=== PATIENT | male | born 1955 | race African-American/Black ===

== ENCOUNTER 2016-12-10 13:07 | Emergency (ER) | payer OTHER ==
[2016-12-10 13:37] VITALS: BP 126/76; PULSE 70; TEMP 98.3; BMI 28.1
[2016-12-10] MEDS ORDERED: CYCLOBENZAPRINE HCL 10 MG TABLET (FP) PO ONE (14:43)
[2016-12-10] MEDS ORDERED: CYCLOBENZAPRINE HCL 10 MG TABLET (FP) ONE (14:44)
--- NOTE | 2016-12-10 14:47 | PDOC ---
History of Present Illness - General Chief Complaint: Pain Stated Complaint: LT HIP DISCOMFORT Time Seen by Provider: 12/10/16 14:26 History Source: Patient Exam Limitations: No Limitations - History of Present Illness Initial Comments: 12/10/16 14:47 Patient is here with complaints of left hip and low back pain. States was walking quickly and felt an acute onset of strain/pull to his left lower back/ into his gluteus and down his upper posterior thigh. States happened approximately 2 years ago same type of issue and was given some type of muscle relaxant which resolved his pain. Patient suffers from some chronic immobility status post CVA 2 years ago but is very active performing his own physical therapy at home, wears a leg brace, and walks with a cane. Patient denies fever , denies any nausea vomiting diarrhea or constipation, no bowel changes. No urinary problems. Denies numbness or tingling to leg that is different from his baseline 12/10/16 14:53 Occurred: reports: just prior to arrival Pain Location: reports: back, lower extremity Modifying Factors: improves with: None Loss of Consciousness: no loss of consciousness Associated Symptoms (Fall): denies symptoms Past History - Travel Traveled outside of the country in the last 30 days: No Close contact w/someone who was outside of country & ill: No - Past Medical History Allergies/Adverse Reactions: Allergies Allergy/AdvReac Type Severity Reaction Status Date / Time No Known Allergies Allergy Verified 12/10/16 13:34 Home Medications: Ambulatory Orders Cyclobenzaprine HCl [Flexeril -] 10 mg PO Q8H PRN #21 tablet 12/10/16 CVA: Yes (2009) HTN: Yes - Psycho/Social/Smoking Cessation Hx Anxiety: No Suicidal Ideation: No Smoking Status: No Smoking History: Never smoked Have you smoked in the past 12 months: No Number of Cigarettes Smoked Daily: 0 Information on smoking cessation initiated: No Hx Alcohol Use: No Drug/Substance Use Hx: No Substance Use Type: None Trauma Specific PMHX - Complaint Specific PMHX Back Injury: Yes Other History: left-sided deficits from CVA Review of Systems - Review of Systems Able to Perform ROS?: Yes Is the patient limited Tristanian proficient: Yes Constitutional: Yes: Symptoms Reported, See HPI. No: Malaise HEENTM: Yes: Symptoms Reported Musculoskeletal: Yes: Symptoms Reported, See HPI, Back Pain, Muscle Pain Integumentary: No: Symptoms Reported Neurological: Yes: Symptoms reported All Other Systems: Reviewed and Negative *Physical Exam - Vital Signs Last Vital Signs Temp Pulse Resp BP Pulse Ox 98.3 F 70 18 126/76 100 12/10/16 13:35 12/10/16 13:35 12/10/16 13:35 12/10/16 13:35 12/10/16 13:35 - Physical Exam General Appearance: Yes: Nourished, Appropriately Dressed, Apparent Distress HEENT: positive: JANIE, TMs Normal, Pharynx Normal Neck: positive: Tender, Supple Respiratory/Chest: positive: Lungs Clear, Normal Breath Sounds Cardiovascular: positive: Regular Rhythm, Regular Rate Gastrointestinal/Abdominal: positive: Soft Musculoskeletal: positive: Normal Inspection, Muscle Spasm (low back ) Extremity: positive: Normal Capillary Refill, Normal Range of Motion (for patient, status post CVA with some tenderness reproduced with forward flexion, and motion at waist. Tension and faint spasm palpated to the left side paravertebral lumbar spinous muscles). negative: Tender Integumentary: positive: Normal Color, Pale Neurologic: positive: clinical quality rn II-XII NML intact, Fully Oriented, Alert, Normal Mood/ Affect, Normal Response, Motor Strength 5/5 Progress Note - Progress Note Progress Note: Low back spasm, will treat with cyclobenzaprine and Tylenol *DC/Admit/Observation/Transfer Diagnosis at time of Disposition: Low back strain Qualifiers: Encounter type: initial encounter Qualified Code(s): S39.012A - Strain of muscle, fascia and tendon of lower back, initial encounter - Discharge Dispostion Disposition: HOME Condition at time of disposition: Stable Admit: No - Prescriptions Prescriptions: Cyclobenzaprine HCl [Flexeril -] 10 mg PO Q8H PRN #21 tablet PRN Reason: Muscle Spasms - Patient Instructions Printed Discharge Instructions: DI for Back Strain or Sprain Additional Instructions: Rest, no heavy lifting or exercise until pain is resolved Hot soaks to neck and low back as often as possible/hot showers or Jacuzzis No massage or therapy until spasm is gone Continue Tylenol 2 -325 mg tablets every 6 hours for the next 3 days then as needed for pain and swelling Cyclobenzaprine 1-10mg every 8 hours as needed for spasm If not significant improvement within 24 hours with medication and rest regime, followup with private physician for change in medications and /or therapy.
== END 2016-12-10 15:07 | disposition home or self-care (01) ==
LOC: JERFT 13:07
DX: S39.012A Strain of muscle, fascia and tendon of lower back, initial encounter (principal); I69.854 Hemiplegia and hemiparesis following other cerebrovascular disease affecting left non-dominant side; I10 Essential (primary) hypertension; X50.3XXA Overexertion from repetitive movements, initial encounter; Y93.01 Activity, walking, marching and hiking; Y92.89 Other specified places as the place of occurrence of the external cause
CPT/HCPCS: 99281-25

== ENCOUNTER 2017-08-15 10:02 | Emergency (ER) | payer OTHER ==
[2017-08-15 10:08] VITALS: BP 127/54; PULSE 70; TEMP 98.1; BMI 27.1
--- NOTE | 2017-08-15 11:56 | PDOC ---
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 Patient reports that he normally does not feel lower back pain or hip pain. He describes the hip pain presently as a pulling sensation. Patient denies any radiation of pain down the legs or buttocks. Patient has tingling of his left lower extremity daily is not worse. Patient has a brace to his left lower extremity that he is wearing. Patient reports that his ambulation is not worse than usual. Patient reports that in the past when he has had back pain is take a muscle relaxant with good relief. Patient took acetaminophen earlier today is unsure of milligrams he took. Patient denies any incontinency or saddle anesthesia. Occurred: reports: yesterday Severity: reports: moderate. denies: severe Pain Location: reports: back (for a few minutes this morning acrosss lower back ), lower extremity (left lateral hip area ) Method of Injury: Yes: other (twisted suddenly torso walking up a hill last nigt felt pull to left hip area ) Modifying Factors: improves with: None Loss of Consciousness: no loss of consciousness Associated Symptoms (Fall): denies symptoms, trouble walking (ambulates with cane, has brace left lower leg), other (ambulates wih cane, has brace left lower extremity ) Past History - Past Medical History Allergies/Adverse Reactions: Allergies Allergy/AdvReac Type Severity Reaction Status Date / Time No Known Allergies Allergy Verified 08/15/17 10:04 Home Medications: Ambulatory Orders Cyclobenzaprine HCl [Flexeril -] 10 mg PO Q8H PRN #21 tablet MDD 30 08/15/17 CVA: Yes (2009) HTN: Yes - Immunization History Immunization Up to Date: Yes - Suicide/Smoking/Psychosocial Hx Smoking Status: No Smoking History: Never smoked Have you smoked in the past 12 months: No Number of Cigarettes Smoked Daily: 0 Hx Alcohol Use: No Drug/Substance Use Hx: No Substance Use Type: None Trauma Specific PMHX - Complaint Specific PMHX Back Injury: Yes Review of Systems - Review of Systems Able to Perform ROS?: Yes Constitutional: No: Symptoms Reported HEENTM: No: Symptoms Reported Respiratory: No: Symptoms reported Cardiac (ROS): No: Symptoms Reported ABD/GI: No: Symptoms Reported : No: Symptoms Reported Musculoskeletal: Yes: Back Pain (lower back transient this morning for a few minutes ), Muscle Pain (left lateral slightly medial hip area ) Integumentary: No: Symptoms Reported Neurological: Yes: Pre-Existing Deficit (left leg status post stroke 2009 not worse since last night ) *Physical Exam - Vital Signs Last Vital Signs Temp Pulse Resp BP Pulse Ox 98.1 F 70 18 127/54 98 08/15/17 10:05 08/15/17 10:05 08/15/17 10:05 08/15/17 10:05 08/15/17 10:05 - Physical Exam General Appearance: Yes: Appropriately Dressed Respiratory/Chest: positive: Lungs Clear, Normal Breath Sounds. negative: Chest Tender, Respiratory Distress Cardiovascular: positive: Regular Rhythm, Regular Rate, S1, S2 Vascular Pulses: Doralis-Pedis (L): 4+ Musculoskeletal: positive: Normal Inspection, Decreased Range of Motion (left hip slight all directions ). negative: CVA Tenderness, CVA Tenderness (R), CVA Tenderness (L), Muscle Spasm, Vertebral Tenderness Extremity: positive: Normal Capillary Refill, Normal Inspection, Tender (left hip muscular ) Integumentary: positive: Normal Color Neurologic: positive: Alert, Normal Response, Respond to painful stimul (left leg ), Responsive, Sensory Deficit (left leg ( not worse than prior) ), Other ( negative SLR b/l ). negative: Motor Strength 5/5 (left leg motor strength 3/5) Deep Tendon Reflexes: Knee (L): 4+, Knee (R): 3+ Medical Decision Making - Medical Decision Making 08/15/17 12:11 Patient is a 61-year-old male with history of right-sided CVA 2010 with residual weakness of the left leg, hypertension, hyperlipidemia here today complaining of lower back pain that he felt earlier this morning and left hip pain that he felt last night when he was walking up a hill and turned his torso slightly. Patient reports that he normally does not feel lower back pain or hip pain. He describes the hip pain presently as a pulling sensation. Patient denies any radiation of pain down the legs or buttocks. Patient has tingling of his left lower extremity daily is not worse. Patient has a brace to his left lower extremity that he is wearing. Patient reports that his ambulation is not worse than usual. Patient reports that in the past when he has had back pain is take a muscle relaxant with good relief. Patient took acetaminophen earlier today is unsure of milligrams he took. Patient denies any incontinency or saddle anesthesia. lower back strain left hip strain PLAN: flexeril 10 mg every 8 hrs prn muscle spasm X 21 tabs follow up with orthopedist for further eval *DC/Admit/Observation/Transfer Diagnosis at time of Disposition: Low back strain Qualifiers: Encounter type: initial encounter Qualified Code(s): S39.012A - Strain of muscle, fascia and tendon of lower back, initial encounter Strain of left hip Qualifiers: Encounter type: initial encounter Qualified Code(s): S76.012A - Strain of muscle, fascia and tendon of left hip, initial encounter - Discharge Dispostion Disposition: HOME Condition at time of disposition: Stable - Referrals Referrals: Liza Ariza MD [Primary Care Provider] - Babatunde Villalobos MD [Staff Physician] - - Patient Instructions Additional Instructions: Follow-up with orthopedist for further evaluation as soon as possible return to emergency room if symptoms worsen or new symptoms develop Take acetaminophen as needed as directed by clinical engineering director for pain Avoid strenuous activities until cleared by orthopedist to resume as usual Patient voiced understanding of discharge instructions and all questions were answered - Post Discharge Activity
== END 2017-08-15 12:59 | disposition home or self-care (01) ==
LOC: JERFT 10:02
DX: S39.012A Strain of muscle, fascia and tendon of lower back, initial encounter (principal); X58.XXXA Exposure to other specified factors, initial encounter; Y93.89 Activity, other specified; Y92.9 Unspecified place or not applicable; I69.398 Other sequelae of cerebral infarction; S76.012A Strain of muscle, fascia and tendon of left hip, initial encounter
CPT/HCPCS: 99281-25

== ENCOUNTER 2017-09-19 10:28 | Emergency (ER) | payer OTHER ==
[2017-09-19 10:40] VITALS: BP 124/75; PULSE 75; TEMP 97.3; BMI 27.1
--- NOTE | 2017-09-19 11:34 | PDOC ---
History of Present Illness - General Chief Complaint: Pain Stated Complaint: PAIN (LT LEG) Time Seen by Provider: 09/19/17 11:27 History Source: Patient Exam Limitations: No Limitations - History of Present Illness Initial Comments: 09/19/17 11:32 My chief complaint: Lower back pain radiating down left leg 12/10/16 14:53 History of present illness:Patient is a 61 y/o male with h/o rt. sided CVA and HTN here today with complaints of left lower back pain radiates down left leg to calf . States was walking quickly and felt an acute onset of strain/pull to his left lower back/into his gluteus and down his upper posterior thigh in . Pt. was seen here on 08/15/2017 given a prescription for Flexeril however patient reports that this did not help to relieve the pain did did in the past 2 years ago when he had similar symptoms. Patient suffers from some chronic immobility status post CVA 2 years ago affecting his left side, wears a lower leg brace and uses a cane. He is very active performing his own physical therapy at home. He denies any worsening weakness of left leg or foot. Patient reports having a tingling sensation in his left leg recently. No bowel changes or urinary problems or incontinency or saddle anestheis. He has an appointment with his orthopedist tomorrow in regards to his left shoulder Dr. Gomes. He has only taken Tylenol for arthritis for relief of pain last took yesterday with minimal relief. 09/19/17 12:02 09/19/17 12:03 09/19/17 12:10 Occurred: reports: other (intermittent since 08/04) Severity: reports: moderate Pain Location: reports: back (left lower radiates down left leg laterally to left calf ) Method of Injury: Yes: unknown Modifying Factors: improves with: None Loss of Consciousness: no loss of consciousness Past History - Past Medical History Allergies/Adverse Reactions: Allergies Allergy/AdvReac Type Severity Reaction Status Date / Time No Known Allergies Allergy Verified 09/19/17 10:40 Home Medications: Ambulatory Orders Naproxen [Naprosyn -] 500 mg PO BID PRN #14 tablet MDD 2 09/19/17 CVA: Yes (2009) COPD: No HTN: Yes - Immunization History Immunization Up to Date: Yes - Suicide/Smoking/Psychosocial Hx Smoking Status: No Smoking History: Never smoked Have you smoked in the past 12 months: No Number of Cigarettes Smoked Daily: 0 Hx Alcohol Use: No Drug/Substance Use Hx: No Substance Use Type: None Trauma Specific PMHX - Complaint Specific PMHX Back Injury: Yes Review of Systems - Review of Systems Able to Perform ROS?: Yes Constitutional: No: Symptoms Reported HEENTM: No: Symptoms Reported Respiratory: No: Symptoms reported Cardiac (ROS): No: Symptoms Reported ABD/GI: No: Symptoms Reported : No: Symptoms Reported Musculoskeletal: Yes: Back Pain (left lower radiates to left buttock down left leg to calf ) Neurological: Yes: Tingling (left leg ) *Physical Exam - Vital Signs Last Vital Signs Temp Pulse Resp BP Pulse Ox 97.3 F L 75 18 124/75 98 09/19/17 10:37 09/19/17 10:37 09/19/17 10:37 09/19/17 10:37 09/19/17 10:37 - Physical Exam General Appearance: Yes: Appropriately Dressed Respiratory/Chest: positive: Lungs Clear, Normal Breath Sounds. negative: Chest Tender, Respiratory Distress Cardiovascular: positive: Regular Rhythm, Regular Rate, S1, S2 Vascular Pulses: Doralis-Pedis (L): 4+ Musculoskeletal: positive: Normal Inspection, Decreased Range of Motion (slight at waist with flexion ). negative: CVA Tenderness, CVA Tenderness (R), CVA Tenderness (L), Muscle Spasm, Vertebral Tenderness Extremity: positive: Normal Capillary Refill, Normal Inspection, Normal Range of Motion. negative: Tender, Swelling Integumentary: positive: Normal Color Neurologic: positive: Alert, Normal Response, Respond to painful stimul (left leg ), Responsive, Other (motor left lower 4/4, rt. 5/5 ). negative: Motor Strength 5/5, Numbness, Sensory Deficit (left leg) Deep Tendon Reflexes: Knee (L): 3+, Knee (R): 3+ Medical Decision Making - Medical Decision Making 09/19/17 12:08 Patient is a 61 y/o male with h/o rt. sided CVA and HTN here today with complaints of left lower back pain radiates down left leg to calf . States was walking quickly and felt an acute onset of strain/pull to his left lower back/ into his gluteus and down his upper posterior thigh in 08/04. Pt. was seen here on 08/15/2017 given a prescription for Flexeril however patient reports that this did not help to relieve the pain did did in the past 2 years ago when he had similar symptoms. Patient suffers from some chronic immobility status post CVA 2 years ago affecting his left side, wears a lower leg brace and uses a cane. He is very active performing his own physical therapy at home. He denies any worsening weakness of left leg or foot. Patient reports having a tingling sensation in his left leg recently. No bowel changes or urinary problems or incontinency or saddle anesthesis. He has an appointment with his orthopedist tomorrow in regards to his left shoulder Dr. Gomes. He has only taken Tylenol for arthritis for relief of pain last took yesterday with minimal relief. left sided lower back pain with radiculopathy down left leg with paresthesia PLAN: toradol 30 mg IM now xray left hip no gross abnormality noted xray lumbar/sacral spine DJD, no gross abnormality noted 09/19/17 12:11 09/19/17 12:11 09/19/17 14:01 Naprosyn 500 mg bid prn pain # 14 tabs follow up with ortho tomorrow Dr. Gomes pt.'s orthopedist pt feeling better 09/19/17 19:51 *DC/Admit/Observation/Transfer Diagnosis at time of Disposition: Lumbar back pain with radiculopathy affecting left lower extremity - Discharge Dispostion Disposition: HOME Condition at time of disposition: Stable - Prescriptions Prescriptions: Naproxen [Naprosyn -] 500 mg PO BID PRN #14 tablet MDD 2 PRN Reason: Pain - Referrals Referrals: Liza Ariza MD [Primary Care Provider] - - Patient Instructions Additional Instructions: Follow-up with your orthopedist tomorrow for further evaluation Return to emergency room for worsening lower back pain radiating down your leg or worsening tingling of leg or numbness of leg or private area or any os of control of bladder or bowel movement Patient voiced understanding of discharge instructions and all questions were answered And thank you for choosing [facility] emergency room for your medical needs today
[2017-09-19] MEDS ORDERED: KETOROLAC TROMETHAMINE 60 MG/2 ML VIAL IM ONE (12:02)
[2017-09-19] MEDS ORDERED: KETOROLAC TROMETHAMINE 30 MG/1 ML VIAL ONE (12:07)
== END 2017-09-19 14:09 | disposition home or self-care (01) ==
LOC: JERFT 10:28
PROC: 3E0233Z Introduction of Anti-inflammatory into Muscle, Percutaneous Approach (ICD-10-PCS; principal; 2017-09-19)
DX: M54.16 Radiculopathy, lumbar region (principal); Z86.73 Personal history of transient ischemic attack (TIA), and cerebral infarction without residual deficits; I10 Essential (primary) hypertension
CPT/HCPCS: 72100-TC; 73502-TC-LT; 99281-25

== ENCOUNTER 2017-10-12 13:32 | Inpatient (IN) | payer OTHER ==
[2017-10-12 13:52] VITALS: BMI 27.7
--- NOTE | 2017-10-12 14:38 | PDOC ---
History of Present Illness - General Chief Complaint: Urinary Problem Stated Complaint: URINARY PROBLEM Time Seen by Provider: 10/12/17 14:16 History Source: Patient Exam Limitations: No Limitations - History of Present Illness Initial Comments: 10/12/17 14:38 61M with pmh of htn and CVA in 2009 presents burning on urination and subjective fever. Seen by dr. Arrieta on the for a cystoscopy, was told his bladder was inflammed and given a prescription for levofloxacin but didn't get a chance to take it yet. Denies abdominal pain or hematuria. No UTI history. Is not sure why he has a urologist or why a cytoscopy was performed in the first place. Not on aspirin. Past History - Past Medical History Allergies/Adverse Reactions: Allergies Allergy/AdvReac Type Severity Reaction Status Date / Time No Known Allergies Allergy Verified 10/12/17 13:46 Home Medications: Ambulatory Orders Fenofibrate Nanocrystallized [Fenofibrate] 145 mg PO DAILY 10/12/17 Losartan Potassium [Cozaar] 100 mg PO DAILY 10/12/17 Metoprolol Tartrate [Lopressor] 50 mg PO DAILY 10/12/17 Tamsulosin HCl [Flomax] 0.4 mg PO DAILY 10/12/17 CVA: Yes (2009) COPD: No HTN: Yes - Immunization History Immunization Up to Date: Yes - Suicide/Smoking/Psychosocial Hx Smoking Status: No Smoking History: Never smoked Have you smoked in the past 12 months: No Number of Cigarettes Smoked Daily: 0 Information on smoking cessation initiated: No Hx Alcohol Use: No Drug/Substance Use Hx: No Substance Use Type: None Review of Systems - Review of Systems Able to Perform ROS?: Yes Is the patient limited Botswanan proficient: No Constitutional: Yes: Symptoms Reported, Diaphoresis, Fever, Night Sweats, Weakness HEENTM: No: Symptoms Reported Respiratory: No: Symptoms reported Cardiac (ROS): No: Symptoms Reported ABD/GI: No: Symptoms Reported : Yes: Burning, Dysuria, Frequency. No: Flank Pain All Other Systems: Reviewed and Negative *Physical Exam - Vital Signs Last Vital Signs Temp Pulse Resp BP Pulse Ox 100.1 F H 110 H 15 111/70 98 10/12/17 13:47 10/12/17 13:47 10/12/17 13:47 10/12/17 13:47 10/12/17 13:47 - Physical Exam General Appearance: Yes: Nourished, Appropriately Dressed, Mild Distress HEENT: positive: EOMI, JANIE, Normal ENT Inspection Neck: negative: Tender Respiratory/Chest: positive: Lungs Clear, Normal Breath Sounds, Respiratory Distress. negative: Chest Tender Cardiovascular: positive: Regular Rhythm, Regular Rate, S1, S2 Gastrointestinal/Abdominal: positive: Normal Bowel Sounds, Flat, Soft ED Treatment Course - LABORATORY CBC & Chemistry Diagram: 10/12/17 15:00 10/12/17 15:00 Medical Decision Making - Medical Decision Making 10/12/17 20:03 61M with pmh of htn and CVA in 2009 presents burning on urination and subjective fever. Patient urine positive for blood and nitrites Started on Zosyn and fluids. 'Orderd Ct abdomen to evaluate for mass/foreign object in the bldder post cystectomy. Acetaminophen for pyuresis. Spoke to Dr. Arnett supervisor product inspection for [facility], agreed with plan to admit patient. Patient admitted to Med Surg. PAtient signed out to Dr. Garcia. 10/12/17 20:05 *DC/Admit/Observation/Transfer Diagnosis at time of Disposition: UTI (urinary tract infection), Sepsis - Referrals Referrals: Liza Ariza MD [Primary Care Provider] - - Patient Instructions - Post Discharge Activity
--- NOTE | 2017-10-12 15:00 | PDOC ---
Attending Attestation - ED Attending Attestation I have performed the following: I agree w/resident's findings & plan - HPI HPI: 10/12/17 17:53 The patient is a year 61 old male with a significant PMH of hypertension, CVA in 2009 and s/p cystoscopy who presents to the emergency department with burning urination and subjective fever. Dr. Arrieta performed the cystoscopy and patient was sent home on levofloxacin but the patient reports he has not taken the medication. The patient denies chest pain, headache, and shortness of breath. Denies nausea, vomit, diarrhea and constipation. Denies abdominal pain and hematuria. Allergies: NKA Past surgical history: None reported. Social history: No reported cigarette, alcohol, or drug abuse. PCP: Dr. Ariza - Physicial Exam PE: 10/12/17 17:59 Vitals: Triage Vital signs reviewed General Appearance: (+) Diaphoresis. Well nourished well developed, Head: Atraumatic, normocephalic Eyes: Pupils equal reactive round, extraocular movement intact Neck: Supple;No Nuchal rigidity Chest Wall: Nontender Cardiac: Regular rate and rhythm, no murmurs, no rubs, no gallops, Lungs: Clear to auscultation bilateral, good air movement bilaterally, Abdomen: Soft, nondistended, normal bowel sounds, nontender to palpation Extremities: (+) Rigoring. Full range of motion to all extremities, no cyanosis , clubbing, or edema Skin: Warm and dry, no rashes or lesions, no petechiae <Ericka Kidd - Last Filed: 10/12/17 17:53> - Medical Decision Making 10/12/17 20:15 History and examination consistent with urosepsis secondary to recent cystoscopy procedure. Given elevation of white blood cell count a noncontrast CT of the patient's abdomen was ordered. to f/u results Patient treated with 2 L normal saline IV Zosyn and IV Tylenol We'll admit to medicine for further management. <Slick Harrell - Last Filed: 10/12/17 20:15>
[2017-10-12 15:26] LABS: MCH 33.3 pg (25.7-33.7); MCHC 33.7 g/dl (32.0-35.9); MEAN CELL VOLUME 98.7 fl (80-96); RDW 13.9 % (11.9-15.9)
[2017-10-12] MEDS ORDERED: ACETAMINOPHEN 325 MG TABLET (FP) ONE (15:29)
[2017-10-12] MEDS ORDERED: ACETAMINOPHEN 500 MG TABLET (FP) PO ONE (15:29)
[2017-10-12 15:31] LABS: INR 1.31 (0.82-1.09); PROTHROMBIN TIME (PATIENT) 14.8 SEC (9.98-11.88)
[2017-10-12 15:34] LABS: ACTIVATED PTT 31.8 SECONDS (26.9-34.4)
[2017-10-12 15:41] LABS: URINE APPEARANCE SLCLOUDY; URINE BILIRUBIN NEGATIVE (NEGATIVE); URINE BLOOD 3+ (NEGATIVE); URINE COLOR YELLOW; URINE GLUCOSE (UA) 2+ (NEGATIVE); URINE KETONE NEGATIVE (NEGATIVE); URINE NITRITE POSITIVE (NEGATIVE); URINE UROBILINOGEN NEGATIVE mg/dL (0.2-1.0)
[2017-10-12 15:43] LABS: ALBUMIN 3.8 g/dl (3.4-5.0); ANION GAP 6 (8-16); CALCIUM 9.2 mg/dL (8.5-10.1); CO2 26 mmol/L (21-32); CREATININE 1.4 mg/dL (0.7-1.3); GLUCOSE,RANDOM 133 mg/dL (74-106); SGPT/ALT 33 U/L (12-78)
[2017-10-12 15:49] LABS: ALK PHOS 69 U/L (45-117); BILIRUBIN,TOTAL 1.2 mg/dL (0.2-1.0); SGOT/AST 13 U/L (15-37); TOT PROT 7.8 g/dl (6.4-8.2)
[2017-10-12 16:02] LABS: URINE PROTEIN 1+ (NEGATIVE)
[2017-10-12 16:04] LABS: URINE RBC 492 /hpf (0-3); URINE WBC 104 /hpf (3-5); YEAST FEW
[2017-10-12] MEDS ORDERED: PIPERACILLIN/TAZOB 4.5 GM/100 ML PRE-DOCKED IVPB ONE (16:42)
[2017-10-12] MEDS ORDERED: PIPERACILLIN/TAZOB 4.5 GM 4.5 GM/100 ML BAG IVPB ONE (16:55)
[2017-10-12 16:58] LABS: MEAN PLT VOLUME 10.6 fl (7.5-11.1); PLATELET COUNT 95 K/MM3 (134-434); PLATELET ESTIMATE SLT DECREASE
[2017-10-12 17:04] LABS: MYELOCYTE 1 % (0-2); REACTIVE LYMPHOCYTES 3 % (0-80); TOTAL CELLS COUNTED 100
[2017-10-12] MEDS ORDERED: SODIUM CHLORIDE 1,000 ML IV STA (17:10)
--- NOTE | 2017-10-12 19:33 | PDOC ---
*Physical Exam - Vital Signs Patient's care signed out to me by Dr. Velasquez. 61 YOM with urosepsis, plan is admission to [facility] now awaiting CT abdomen results. Spoke with Dr. Aguiar already with Urology. Will [employer] [facility] when official CT results are in. Last Vital Signs Temp Pulse Resp BP Pulse Ox 101.6 F H 100 H 15 101/64 95 10/12/17 17:47 10/12/17 17:47 10/12/17 13:47 10/12/17 17:47 10/12/17 17:47 ED Treatment Course - LABORATORY CBC & Chemistry Diagram: 10/13/17 07:00 10/13/17 07:00 - ADDITIONAL ORDERS Additional order review: Laboratory Results 10/12/17 10/12/17 10/12/17 17:20 15:20 15:00 PT with INR INR PTT (Actin FS) Sodium 134 L Potassium 4.1 Chloride 102 Carbon Dioxide 26 Anion Gap 6 L BUN 12 Creatinine 1.4 H Creat Clearance w eGFR 51.18 Random Glucose 133 H Lactic Acid 1.5 Calcium 9.2 Total Bilirubin 1.2 H D AST 13 L ALT 33 Alkaline Phosphatase 69 Total Protein 7.8 Albumin 3.8 Urine Color Yellow Urine Appearance Slcloudy Urine pH 7.0 Ur Specific [place] 1.018 Urine Protein 1+ H Urine Glucose (UA) 2+ H Urine Ketones Negative Urine Blood 3+ H Urine Nitrite Positive Urine Bilirubin Negative Urine Urobilinogen Negative Urine WBC (Auto) 104 Urine RBC (Auto) 492 Ur Epithelial Cells Rare Urine Yeast Few 10/12/17 15:00 PT with INR 14.80 H INR 1.31 H PTT (Actin FS) 31.8 Sodium Potassium Chloride Carbon Dioxide Anion Gap BUN Creatinine Creat Clearance w eGFR Random Glucose Lactic Acid Calcium Total Bilirubin AST ALT Alkaline Phosphatase Total Protein Albumin Urine Color Urine Appearance Urine pH Ur Specific [place] Urine Protein Urine Glucose (UA) Urine Ketones Urine Blood Urine Nitrite Urine Bilirubin Urine Urobilinogen Urine WBC (Auto) Urine RBC (Auto) Ur Epithelial Cells Urine Yeast 10/12/17 15:00 RBC 4.43 MCV 98.7 H MCHC 33.7 RDW 13.9 MPV 10.6 Neutrophils % No Result Required. Lymphocytes % No Result Required. - Medications Given in the ED: ED Medications Discontinued Medications Generic Name Dose Route Start Last Admin Trade Name Freq PRN Reason Stop Dose Admin Acetaminophen 1,000 mg 10/12/17 15:29 10/12/17 15:25 Tylenol - PO 10/12/17 15:30 1,000 mg ONCE ONE Administration Sodium Chloride 1,000 mls @ 1,000 mls/hr 10/12/17 17:10 10/12/17 17:10 Normal Saline - IV 10/12/17 18:09 1,000 mls/hr ASDIR STA Administration Piperacillin Sod/Tazobactam Sod 4.5 gm 10/12/17 16:42 10/12/17 17:10 Zosyn 4.5gm Ivpb (Pre-Docked) IVPB 10/12/17 16:43 4.5 gm ONCE ONE Administration Medical Decision Making - Medical Decision Making 10/12/17 21:31 Spoke with admitting team who gives the go-ahead to admit to IP Med/Surg. Order placed for admission. Still awaiting final result of CT from Imaging Business [employer]ing Manager. Patient transported to IP bed without issue. *DC/Admit/Observation/Transfer Diagnosis at time of Disposition: UTI (urinary tract infection) Qualifiers: Urinary tract infection type: acute cystitis Hematuria presence: with hematuria Qualified Code(s): N30.01 - Acute cystitis with hematuria Sepsis Qualifiers: Sepsis type: sepsis due to unspecified organism Qualified Code(s): A41.9 - Sepsis, unspecified organism - Discharge Dispostion Condition at time of disposition: Guarded Admit: Yes - Referrals - Patient Instructions - Post Discharge Activity
[2017-10-12 20:00] LABS: URINE LEUK ESTERASE 1+ (NEGATIVE)
--- NOTE | 2017-10-12 21:27 | HP ---
CHIEF COMPLAINT: fevers HISTORY OF PRESENT ILLNESS: 61 year old male with a past medical history of hypertension and CVA in 2009 presented to the ED due to a 4 day history of fevers and burning on urination. Patient states that his PCP referred him to get a cystoscopy. Patient does not recall the reason why the PCP sent him for a cystoscopy. Patient states that he had the cystoscopy done on Saturday with Dr. Arrieta, who later reported to the patient that he had "inflammation of his bladder". After the procedure, patient reports being given a prescription for Levofloxacin. 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 He states that the fevers started on Saturday evening. He took advil but it did not help him. Patient states that he also had burning on urination and frequency. He states that in the ED, he had an episode of hematuria and when he was given IV fluids the hematuria had stopped. Patient states that he has some back pain. Denies chest pain, shortness of breath, nausea, vomiting. ER course was notable for: (1) tachycardia (2) fever (3) leukocytosis (4) + nitrites and WBCs on UA Recent Travel: None PAST MEDICAL HISTORY: Hypertension CVA 2010 PAST SURGICAL HISTORY: None Social History: Smoking: Former, unclear how long Alcohol: none Drugs: none Family History: Mother with diabetes and CVA Father has unclear history Allergies No Known Allergies Allergy (Verified 10/12/17 13:46) HOME MEDICATIONS: Home Medications Medication Instructions Recorded Fenofibrate Nanocrystallized 145 mg PO DAILY 10/12/17 [Fenofibrate] Losartan Potassium [Cozaar] 100 mg PO DAILY 10/12/17 Metoprolol Tartrate [Lopressor] 50 mg PO DAILY 10/12/17 Tamsulosin HCl [Flomax] 0.4 mg PO DAILY 10/12/17 REVIEW OF SYSTEMS CONSTITUTIONAL: fever, chills Absent: diaphoresis, generalized weakness, malaise, loss of appetite, weight change HEENT: Absent: rhinorrhea, nasal congestion, throat pain, throat swelling, difficulty swallowing, mouth swelling, ear pain, eye pain, visual changes CARDIOVASCULAR: Absent: chest pain, syncope, palpitations, irregular heart rate, lightheadedness , peripheral edema RESPIRATORY: Absent: cough, shortness of breath, dyspnea with exertion, orthopnea, wheezing, stridor, hemoptysis GASTROINTESTINAL: Absent: abdominal pain, abdominal distension, nausea, vomiting, diarrhea, constipation, melena, hematochezia GENITOURINARY: dysuria, frequency, urgency Absent: hesitancy, hematuria, flank pain, genital pain MUSCULOSKELETAL: Absent: myalgia, arthralgia, joint swelling, back pain, neck pain SKIN: Absent: rash, itching, pallor HEMATOLOGIC/IMMUNOLOGIC: Absent: easy bleeding, easy bruising, lymphadenopathy, frequent infections ENDOCRINE: Absent: unexplained weight gain, unexplained weight loss, heat intolerance, cold intolerance NEUROLOGIC: Absent: headache, focal weakness or paresthesias, dizziness, unsteady gait, seizure, mental status changes, bladder or bowel incontinence PSYCHIATRIC: Absent: anxiety, depression, suicidal or homicidal ideation, hallucinations. PHYSICAL EXAMINATION Vital Signs - 24 hr 10/12/17 10/12/17 10/12/17 13:47 17:47 20:03 Temperature 100.1 F H 101.6 F H 98.4 F Pulse Rate 110 H Pulse Rate [ 100 H Apical] Respiratory 15 Rate Blood Pressure 111/70 Blood Pressure 101/64 [Left Arm] O2 Sat by Pulse 98 95 Oximetry (%) GENERAL: Awake, alert, and fully oriented, in no acute distress. HEAD: Normal with no signs of trauma. EYES: Pupils equal, round and reactive to light, extraocular movements intact, sclera anicteric, conjunctiva clear. No lid lag. EARS, NOSE, THROAT: Ears normal, nares patent, oropharynx clear without exudates. Moist mucous membranes. NECK: Normal range of motion, supple without lymphadenopathy, JVD, or masses. LUNGS: Breath sounds equal, clear to auscultation bilaterally. No wheezes, and no crackles. No accessory muscle use. HEART: regular rate and rhythm, normal S1 and S2 without murmur, rub or gallop. ABDOMEN: Soft, nontender, not distended, normoactive bowel sounds, no guarding, no rebound, no masses. No hepatomegaly or splenomegaly. MUSCULOSKELETAL: Normal range of motion at all joints. No bony deformities or tenderness. No CVA tenderness. UPPER EXTREMITIES: 2+ pulses, warm, well-perfused. No cyanosis. No clubbing. No peripheral edema. LOWER EXTREMITIES: 2+ pulses, warm, well-perfused. No calf tenderness. No peripheral edema. NEUROLOGICAL: Cranial nerves II-XII intact. Normal speech. Normal gait. PSYCHIATRIC: Cooperative. Good eye contact. Appropriate mood and affect. SKIN: Warm, dry, normal turgor, no rashes or lesions noted, normal capillary refill. Laboratory Results - last 24 hr 10/12/17 10/12/17 10/12/17 15:00 15:00 15:00 WBC 20.0 H D RBC 4.43 Hgb 14.7 Hct 43.7 MCV 98.7 H MCH 33.3 MCHC 33.7 RDW 13.9 Plt Count 95 L MPV 10.6 Total Counted 100 Neutrophils % No Result Required. Neutrophils % (Manual) 74.0 Band Neutrophils % 6.0 Lymphocytes % No Result Required. Lymphocytes % (Manual) 7.0 L Monocytes % (Manual) 8 Basophils % (Manual) 1.0 Myelocytes % (Man) 1 Differential Comment Man diff performed Platelet Estimate Slt decrease Platelet Comment PT with INR 14.80 H INR 1.31 H PTT (Actin FS) 31.8 Sodium 134 L Potassium 4.1 Chloride 102 Carbon Dioxide 26 Anion Gap 6 L BUN 12 Creatinine 1.4 H Creat Clearance w eGFR 51.18 Random Glucose 133 H Lactic Acid Calcium 9.2 Total Bilirubin 1.2 H D AST 13 L ALT 33 Alkaline Phosphatase 69 Total Protein 7.8 Albumin 3.8 Urine Color Urine Appearance Urine pH Ur Specific [place] Urine Protein Urine Glucose (UA) Urine Ketones Urine Blood Urine Nitrite Urine Bilirubin Urine Urobilinogen Ur Leukocyte Esterase Urine WBC (Auto) Urine RBC (Auto) Ur Epithelial Cells Urine Yeast 10/12/17 10/12/17 15:20 17:20 WBC RBC Hgb Hct MCV MCH MCHC RDW Plt Count MPV Total Counted Neutrophils % Neutrophils % (Manual) Band Neutrophils % Lymphocytes % Lymphocytes % (Manual) Monocytes % (Manual) Basophils % (Manual) Myelocytes % (Man) Differential Comment Platelet Estimate Platelet Comment PT with INR INR PTT (Actin FS) Sodium Potassium Chloride Carbon Dioxide Anion Gap BUN Creatinine Creat Clearance w eGFR Random Glucose Lactic Acid 1.5 Calcium Total Bilirubin AST ALT Alkaline Phosphatase Total Protein Albumin Urine Color Yellow Urine Appearance Slcloudy Urine pH 7.0 Ur Specific [place] 1.018 Urine Protein 1+ H Urine Glucose (UA) 2+ H Urine Ketones Negative Urine Blood 3+ H Urine Nitrite Positive Urine Bilirubin Negative Urine Urobilinogen Negative Ur Leukocyte Esterase 1+ H Urine WBC (Auto) 104 Urine RBC (Auto) 492 Ur Epithelial Cells Rare Urine Yeast Few ASSESSMENT/PLAN: 61 year old male with a past medical history of HTN and CVA is admitted to the hospital for treatment of sepsis secondary to UTI. #Sepsis 2/2 UTI: possibly 2/2 procedure patient underwent Saturday -given zosyn in the ED -will start ceftriaxone 2gm daily -obtain lactate level -CT abdomen pelvis official read not back - preliminarily the kidneys appear normal without hydronephrosis or evidence of pyelonephritis. Significant bladder wall thickening is noted. -ordered a chest xray to rule out pulmonary cause of sepsis -consult Dr. Arrieta (urologist) #MARY: patient's creatinine is 1.4 today -order urine electrolytes -order urine creatinine -order urine osmolarity -recheck BMP in AM -avoid nephrotoxic medications #Hypertension: chronic issue, controlled -restart home metoprolol 50mg PO BID -restart home losartan 50mg PO BID #Hyperlipidemia: unclear hx from patient -Continue home fenofibrate #Benign Prostatic Hyperplasia: Unclear history from patient on whether he actually has BPH, but is taking tamsulosin at home. -Continue home flomax -get clear history from urology -appreciate urology recommendations #FEN: -Hydration with normal saline @ 75cc/hr -check BMP in AM and replete eletrolytes as necessary -low-sodium diet ordered #Prophylaxis -Heparin 5000 subq TID #Disposition -Admit patient to med-surg -full code Visit type - Emergency Visit Emergency Visit: Yes Care time: The patient presented to the Emergency Department on the above date and was hospitalized for further evaluation of their emergent condition. - New Patient This patient is new to me today: Yes Date on this admission: 10/12/17 - Critical Care Critical Care patient: No
--- NOTE | 2017-10-12 21:35 | PN ---
Teaching Attending Note Name of Resident: Ricky Shin ATTENDING PHYSICIAN STATEMENT I saw and evaluated the patient. Chart, data, and imaging reviewed I reviewed the resident's note and discussed the case with the resident. I agree with the resident's findings and plan as documented. SUBJECTIVE: 61M with pmh of htn and CVA in 2009 c/o fever, chills, and burning with urination for for the last 2 days. Underwent cystoscopy for uncertain reason on 09/[address] Hayde Johnston, was told his bladder was inflammed and given a prescription for levofloxacin but didn't get a chance to take it yet. Pt endorses a vague history of renal stones. No Hx of UTIs. Denied any straining with urination. C/o back pain. OBJECTIVE: Last Vital Signs Temp Pulse Resp BP Pulse Ox 98.4 F 100 H 15 101/64 95 10/12/17 20:03 10/12/17 17:47 10/12/17 13:47 10/12/17 17:47 10/12/17 17:47 General- NAD, aaox3 HEENT at, nc, moist oral mucosa Neck -supple CV- s1+s2+ RRR Chest CTA b/l No CVA tenderness Skin- no rashes appreciated Abnormal Lab Results 10/12/17 10/12/17 10/12/17 15:00 15:00 15:00 WBC 20.0 H D MCV 98.7 H Plt Count 95 L Lymphocytes % (Manual) 7.0 L PT with INR 14.80 H INR 1.31 H Sodium 134 L Anion Gap 6 L Creatinine 1.4 H Random Glucose 133 H Total Bilirubin 1.2 H D AST 13 L Urine Protein Urine Glucose (UA) Urine Blood Ur Leukocyte Esterase 10/12/17 15:20 WBC MCV Plt Count Lymphocytes % (Manual) PT with INR INR Sodium Anion Gap Creatinine Random Glucose Total Bilirubin AST Urine Protein 1+ H Urine Glucose (UA) 2+ H Urine Blood 3+ H Ur Leukocyte Esterase 1+ H CT of abdomen/pelvis C- report pending ASSESSMENT AND PLAN: #Sepsis 2/2 to UTI s/p recent cystoscopy. Tachycardia, leukocyosis, pyuria present on UA. Hemodynamically stable. No evidence of pyelonephritis on physical exam as there is no CVA tenderness. S/p one dose of pip/tazo in ER with subjective improvement in symptoms. -admit to med/surg -blood cx x2 -urine cx -lactate -trend CBC -flu swab -EKG -CXR -f/u abdomen/pelvis CT report -ceftriaxone 2g IV q24hrs -urology f/u in am #MARY vs CKD -urine lytes -serum osm -urine osm -f/u abd/pelvis CT -avoid nephrotoxic meds -I/Os -daily weights -restart home meds for chronic medical problems -heparin for DVT ppx -2g Na diet
[2017-10-12] MEDS ORDERED: PATIENT'S OWN MEDICATION (NON-FORMULARY) (Fenofibrate Nanocrystallized [Fenofibrate] 145 M PO SCH (21:45)
[2017-10-12] MEDS ORDERED: PATIENT'S OWN MEDICATION (NON-FORMULARY) (Losartan Potassium [Cozaar] 100 MG) PO SCH (21:45)
[2017-10-12] MEDS: SODIUM CHLORIDE 1,000 ML IV SCH (22:30)
[2017-10-12] MEDS ORDERED: METOPROLOL TARTRATE 50 MG TABLET (FP) ONE (23:22)
[2017-10-12] MEDS ORDERED: HEPARIN NA (PORCINE) 5,000 UNITS/ML 1ML VIAL ONE (23:23)
[2017-10-12] MEDS ORDERED: LOSARTAN POTASSIUM 25 MG TABLET ONE (23:23)
[2017-10-12] MEDS ORDERED: TAMSULOSIN HCL 0.4 MG CAP.ER.24H (FP) ONE (23:23)
[2017-10-12] MEDS ORDERED: CEFTRIAXONE 2 GM/100 ML BAG IVPB ONE (23:24)
[2017-10-12 23:33] LABS: URINE CREATININE 60.1 mg/dL (20-370)
[2017-10-12] MEDS: TAMSULOSIN HCL 0.4 MG CAP.ER.24H (FP) PO SCH (23:40)
[2017-10-12] MEDS: LOSARTAN POTASSIUM 50 MG TABLET (FP) PO SCH (23:40)
[2017-10-12] MEDS: METOPROLOL TARTRATE 50 MG TABLET (FP) PO SCH (23:40)
[2017-10-12] MEDS: CEFTRIAXONE 2 GM in DEXTROSE 5%-WATER - 100 ML IVPB SCH (23:40)
[2017-10-12] MEDS: HEPARIN NA (PORCINE) 5,000 UNITS/ML 1ML VIAL SQ SCH (23:41)
[2017-10-12] MEDS: FENOFIBRIC ACID 135 MG CAP PO SCH (23:41)
[2017-10-13] MEDS: ACETAMINOPHEN 325 MG TABLET (FP) PO PRN ×4 (01:00→20:40)
[2017-10-13] MEDS: HEPARIN NA (PORCINE) 5,000 UNITS/ML 1ML VIAL SQ SCH (05:39)
[2017-10-13 08:08] LABS: MCH 32.6 pg (25.7-33.7); MCHC 33.2 g/dl (32.0-35.9); MEAN CELL VOLUME 98.1 fl (80-96); MEAN PLT VOLUME 10.4 fl (7.5-11.1); PLATELET COUNT 79 K/MM3 (134-434); RDW 13.6 % (11.9-15.9); WHITE BLOOD COUNT 11.8 K/mm3 (4.0-10.0)
[2017-10-13 08:48] LABS: MAGNESIUM 2.3 mg/dL (1.8-2.4)
[2017-10-13] MEDS ORDERED: PNEUMOC 13-VAL CONJ-DIP CRM/PF 0.5 ML DISP.SYRIN IM ONE (09:00)
[2017-10-13] MEDS ORDERED: FLU VACCINE QUAD 60 MCG/0.5 ML (MDV 17-18) IM ONE (09:00)
[2017-10-13 09:06] LABS: ANION GAP 10 (8-16); CO2 20 mmol/L (21-32); CREATININE 1.2 mg/dL (0.7-1.3); GLUCOSE,RANDOM 109 mg/dL (74-106); PHOSPHOROUS 2.3 mg/dL (2.5-4.9)
[2017-10-13] MEDS ORDERED: PT OWN MED DRAWER 7, Y5N ONE (09:10)
[2017-10-13] MEDS: LOSARTAN POTASSIUM 50 MG TABLET (FP) PO SCH (10:21)
[2017-10-13] MEDS: TAMSULOSIN HCL 0.4 MG CAP.ER.24H (FP) PO SCH (10:22)
[2017-10-13] MEDS: FENOFIBRIC ACID 135 MG CAP PO SCH (10:22)
[2017-10-13] MEDS: METOPROLOL TARTRATE 50 MG TABLET (FP) PO SCH (10:22)
--- NOTE | 2017-10-13 10:54 | CON.GU ---
Consult Consult Specialty:: for Dr Hussein Stewart Referred by:: Chance Reason for Consultation:: hematuria, UTI - History of Present Illness Chief Complaint: bloody urine and pain w urination History of Present Illness: 61 yo m adm 10/12 c/o gross hematuria andd dysuria. Pt is s/p cysto recently but failed to take post procedure abxs. cons req. - History Source Limitations to Obtaining History: No Limitations - Alcohol/Substance Use Hx Alcohol Use: No - Smoking History Smoking history: Never smoked Have you smoked in the past 12 months: No Aproximately how many cigarettes per day: 0 Home Medications - Allergies Allergies/Adverse Reactions: Allergies Allergy/AdvReac Type Severity Reaction Status Date / Time No Known Allergies Allergy Verified 10/12/17 13:46 - Home Medications Home Medications: Ambulatory Orders Fenofibrate Nanocrystallized [Fenofibrate] 145 mg PO DAILY 10/12/17 Losartan Potassium [Cozaar] 100 mg PO DAILY 10/12/17 Metoprolol Tartrate [Lopressor] 50 mg PO DAILY 10/12/17 Tamsulosin HCl [Flomax] 0.4 mg PO DAILY 10/12/17 Review of Systems - Review of Systems Genitourinary: reports: Burning, Hematuria Physical Exam- Vital Signs: Vital Signs Temperature 98.2 F 10/13/17 10:39 Pulse Rate 89 10/13/17 10:39 Respiratory Rate 20 10/13/17 10:39 Blood Pressure 110/63 10/13/17 10:39 O2 Sat by Pulse Oximetry (%) 94 L 10/13/17 01:50 Labs: CBC, BMP 10/13/17 07:00 10/13/17 07:00 Imaging - Results Cat Scan: Report Reviewed Assessment/Plan Imp: UTI s/p cystoscopy, resolved gross hematuria, resolving leukocytosis, BPH, thickened bladder wall c/w cystitis Rec: cont iv abxs and flomax. await ur c+s. F/U w Dr. Hussein Stewart after disch.
[2017-10-13] MEDS: CEFTRIAXONE 2 GM in DEXTROSE 5%-WATER - 100 ML IVPB SCH (11:42)
--- NOTE | 2017-10-13 13:25 | PN ---
Teaching Attending Note Name of Resident: . Time of evaluation: 10:30 AM SUBJECTIVE: Patient seen and examined. No flank pain or suprapubic pain, no urinary symptoms , currently, no fevers or chills. Overall feels better. OBJECTIVE: Vital Signs Period Temp Pulse Resp BP Sys/Rahman Pulse Ox Last 24 Hr 97.4 F-101.6 F 89-116 15-20 101-115/63-72 94-98 Intake & Output 10/10/17 10/11/17 10/12/17 10/13/17 23:59 23:59 23:59 23:59 Intake Total 800 Balance 800 Weight 177 lb General: sitting in chair in no acute distress CVS:S1S2 regular Chest: CTAB, no rales or wheezing abdomen: soft, NT, ND, no suprapubic or flank tenderness, no voluntary or involuntary guarding or rigidity, positive bowel sounds extremities: no edema Home Medication List Medication Instructions Recorded Confirmed Type Fenofibrate Nanocrystallized 145 mg PO DAILY 10/12/17 10/12/17 History [Fenofibrate] Losartan Potassium [Cozaar] 100 mg PO DAILY 10/12/17 10/12/17 History Metoprolol Tartrate [Lopressor] 50 mg PO DAILY 10/12/17 10/12/17 History Tamsulosin HCl [Flomax] 0.4 mg PO DAILY 10/12/17 10/12/17 History Active Medications Generic Name Dose Route Start Last Admin Trade Name Freq PRN Reason Stop Dose Admin Acetaminophen 650 mg 10/13/17 01:14 10/13/17 12:51 Tylenol - PO 650 mg Q6H PRN Administration FEVER OR PAIN Fenofibric Acid 135 mg 10/12/17 21:45 10/13/17 10:22 Trilipix - PO 135 mg DAILY ADALID Administration Heparin Sodium (Porcine) 5,000 unit 10/12/17 22:00 10/13/17 05:39 Heparin - SQ 5,000 unit TID ADALID Administration Sodium Chloride 1,000 mls @ 75 mls/hr 10/12/17 20:30 10/12/17 22:30 Normal Saline - IV 75 mls/hr ASDIR ADALID Administration Ceftriaxone Sodium 2 gm/ 100 mls @ 200 mls/hr 10/12/17 21:30 10/13/17 11:42 Dextrose IVPB 200 mls/hr DAILY ADALID Administration Losartan Potassium 100 mg 10/12/17 21:45 10/13/17 10:21 Cozaar - PO 100 mg DAILY ADALID Administration Metoprolol Tartrate 50 mg 10/12/17 21:45 10/13/17 10:22 Lopressor - PO 50 mg DAILY ADALID Administration Tamsulosin HCl 0.4 mg 10/12/17 21:45 10/13/17 10:22 Flomax - PO 0.4 mg DAILY@0830 ADALID Administration Laboratory Results - last 24 hr 10/12/17 10/12/17 10/12/17 15:00 15:00 15:00 WBC 20.0 H D RBC 4.43 Hgb 14.7 Hct 43.7 MCV 98.7 H MCH 33.3 MCHC 33.7 RDW 13.9 Plt Count 95 L MPV 10.6 Total Counted 100 Neutrophils % No Result Required. Neutrophils % (Manual) 74.0 Band Neutrophils % 6.0 Lymphocytes % No Result Required. Lymphocytes % (Manual) 7.0 L Monocytes % (Manual) 8 Basophils % (Manual) 1.0 Myelocytes % (Man) 1 Differential Comment Man diff performed Manual Slide Review Platelet Estimate Slt decrease Platelet Comment PT with INR 14.80 H INR 1.31 H PTT (Actin FS) 31.8 Sodium 134 L Potassium 4.1 Chloride 102 Carbon Dioxide 26 Anion Gap 6 L BUN 12 Creatinine 1.4 H Creat Clearance w eGFR 51.18 Random Glucose 133 H Lactic Acid Calcium 9.2 Phosphorus Magnesium Total Bilirubin 1.2 H D AST 13 L ALT 33 Alkaline Phosphatase 69 Total Protein 7.8 Albumin 3.8 Urine Color Urine Appearance Urine pH Ur Specific [place] Urine Protein Urine Glucose (UA) Urine Ketones Urine Blood Urine Nitrite Urine Bilirubin Urine Urobilinogen Ur Leukocyte Esterase Urine WBC (Auto) Urine RBC (Auto) Ur Epithelial Cells Urine Yeast Urine Osmolality Ur Random Sodium Ur Random Potassium Ur Random Chloride Urine Creatinine 10/12/17 10/12/17 10/12/17 15:20 17:20 23:00 WBC RBC Hgb Hct MCV MCH MCHC RDW Plt Count MPV Total Counted Neutrophils % Neutrophils % (Manual) Band Neutrophils % Lymphocytes % Lymphocytes % (Manual) Monocytes % (Manual) Basophils % (Manual) Myelocytes % (Man) Differential Comment Manual Slide Review Platelet Estimate Platelet Comment PT with INR INR PTT (Actin FS) Sodium Potassium Chloride Carbon Dioxide Anion Gap BUN Creatinine Creat Clearance w eGFR Random Glucose Lactic Acid 1.5 Calcium Phosphorus Magnesium Total Bilirubin AST ALT Alkaline Phosphatase Total Protein Albumin Urine Color Yellow Urine Appearance Slcloudy Urine pH 7.0 Ur Specific [place] 1.018 Urine Protein 1+ H Urine Glucose (UA) 2+ H Urine Ketones Negative Urine Blood 3+ H Urine Nitrite Positive Urine Bilirubin Negative Urine Urobilinogen Negative Ur Leukocyte Esterase 1+ H Urine WBC (Auto) 104 Urine RBC (Auto) 492 Ur Epithelial Cells Rare Urine Yeast Few Urine Osmolality 256 L Ur Random Sodium Ur Random Potassium Ur Random Chloride Urine Creatinine 10/12/17 10/13/17 10/13/17 23:00 07:00 07:00 WBC 11.8 H D RBC 3.95 L Hgb 12.9 D Hct 38.8 MCV 98.1 H MCH 32.6 MCHC 33.2 RDW 13.6 Plt Count 79 L MPV 10.4 Total Counted Neutrophils % Neutrophils % (Manual) Band Neutrophils % Lymphocytes % Lymphocytes % (Manual) Monocytes % (Manual) Basophils % (Manual) Myelocytes % (Man) Differential Comment Manual Slide Review No Result Required. Platelet Estimate Platelet Comment PT with INR INR PTT (Actin FS) Sodium 139 Potassium 3.9 Chloride 109 H Carbon Dioxide 20 L D Anion Gap 10 BUN 14 Creatinine 1.2 Creat Clearance w eGFR Random Glucose 109 H Lactic Acid Calcium 8.0 L Phosphorus 2.3 L Magnesium 2.3 Total Bilirubin AST ALT Alkaline Phosphatase Total Protein Albumin Urine Color Urine Appearance Urine pH Ur Specific [place] Urine Protein Urine Glucose (UA) Urine Ketones Urine Blood Urine Nitrite Urine Bilirubin Urine Urobilinogen Ur Leukocyte Esterase Urine WBC (Auto) Urine RBC (Auto) Ur Epithelial Cells Urine Yeast Urine Osmolality Ur Random Sodium 32 Ur Random Potassium 29.2 Ur Random Chloride [address] A/P results reviewed ASSESSMENT AND PLAN: 61 yom with HTN, CVA admitted with complicated UTI/cystitis after recent cystoscopy. -Sepsis from complicated UTI/cystitis -Hematuria -Thrombocytopenia -recent cystoscopy -HTN -CVA Plan: Ceftriaxone day 2, WBC improved. Follow up urine cultures. Urology input appreciated. Continue flomax. Hematuria resolved. Platelets overall similar on admission from 2014, drop today likely from hemodilution. Trend for now. Transfuse if trending down and recurrent hematuria. Continue home losartan, ?Metoprolol tartarate with inaccurate dosing, reconcile home meds. dVTPPX with SCDs when in bed, given recent hematuria and known thrombocytopenia Anticipate d/c in 1-2 days pending clinical improvement PLan discussed with patient in detail, all questions answered.
[2017-10-13] MEDS: SODIUM CHLORIDE 1,000 ML IV SCH (18:50)
[2017-10-14] MEDS: SODIUM CHLORIDE 1,000 ML IV SCH (06:27)
[2017-10-14 08:17] LABS: BASOPHIL 0.5 % (0-2.0); EOSINOPHIL 4.5 % (0-4.5); MCHC 33.6 g/dl (32.0-35.9); MEAN CELL VOLUME 98.5 fl (80-96); MEAN PLT VOLUME 10.7 fl (7.5-11.1); NEUTROPHILS 59.9 % (42.8-82.8); PLATELET COUNT 92 K/MM3 (134-434); WHITE BLOOD COUNT 5.5 K/mm3 (4.0-10.0)
[2017-10-14 08:31] LABS: ANION GAP 10 (8-16); CALCIUM 7.8 mg/dL (8.5-10.1); CO2 20 mmol/L (21-32); GLUCOSE,RANDOM 109 mg/dL (74-106)
[2017-10-14] MEDS ORDERED: PT OWN MED DRAWER 7, Y5N ONE (09:34)
[2017-10-14] MEDS: LOSARTAN POTASSIUM 50 MG TABLET (FP) PO SCH (09:40)
[2017-10-14] MEDS: FENOFIBRIC ACID 135 MG CAP PO SCH (09:40)
[2017-10-14] MEDS: TAMSULOSIN HCL 0.4 MG CAP.ER.24H (FP) PO SCH (09:40)
[2017-10-14] MEDS: CEFTRIAXONE 2 GM in DEXTROSE 5%-WATER - 100 ML IVPB SCH (09:49)
[2017-10-14] MEDS ORDERED: METOPROLOL SUCCINATE 50 MG TAB.SR.24H (FP) PO SCH (10:00)
--- NOTE | 2017-10-14 14:25 | EKG ---
Test Reason : Blood Pressure : / mmHG Vent. Rate : 105 BPM Atrial Rate : 105 BPM P-R Int : 000 ms QRS Dur : 078 ms QT Int : 300 ms P-R-T Axes : 000 024 069 degrees QTc Int : 396 ms SINUS TACHYCARDIA WITH 1ST DEGREE A-V BLOCK OTHERWISE NORMAL ECG WHEN COMPARED WITH ECG OF 25-FEB-2014 12:14, NO SIGNIFICANT CHANGE WAS FOUND Confirmed by LU ROSE MD ([id number]) on 10/14/2017 2:25:00 PM Referred By: Confirmed By:LU ROSE MD
--- NOTE | 2017-10-14 15:04 | PN ---
Teaching Attending Note Name of Resident: Ricky Shin ATTENDING PHYSICIAN STATEMENT Time of evaluation: 10:30 Am I saw and evaluated the patient. I reviewed the resident's note and discussed the case with the resident. I agree with the resident's findings and plan as documented. SUBJECTIVE: Patient seen and examined. Some low back pain from lying in bed, no flank pain. resolved urinary symptoms, No flank of suprapubic pain. Ambulating well, no new concerns. OBJECTIVE: Vital Signs Period Temp Pulse Resp BP Sys/Rahman Pulse Ox Last 24 Hr 98.1 F-100.3 F 78-95 18-20 92-143/63-83 98 Intake & Output 10/11/17 10/12/17 10/13/17 10/14/17 23:59 23:59 23:59 23:59 Intake Total 1390 1065 Balance 1390 1065 Weight 177 lb General: sitting in bed in no acute distress Musculoskeletal: no spinal or paraspinal tenderness Abdomen: soft, NT, ND, no suprapubic or flank tenderness Extremities: no edema Neuro: AAOX3, left hemiparesis, LLE 4/5, LUE almost 4/5 (subtly weaker than RUE) , at baseline per patient Home Medication List Medication Instructions Recorded Confirmed Type Fenofibrate Nanocrystallized 145 mg PO DAILY 10/12/17 10/12/17 History [Fenofibrate] Losartan Potassium [Cozaar] 100 mg PO DAILY 10/12/17 10/12/17 History Metoprolol Tartrate [Lopressor] 50 mg PO DAILY 10/12/17 10/12/17 History Tamsulosin HCl [Flomax] 0.4 mg PO DAILY 10/12/17 10/12/17 History Active Medications Generic Name Dose Route Start Last Admin Trade Name Freq PRN Reason Stop Dose Admin Acetaminophen 650 mg 10/13/17 01:14 10/13/17 20:40 Tylenol - PO 650 mg Q6H PRN Administration FEVER OR PAIN Fenofibric Acid 135 mg 10/12/17 21:45 10/14/17 09:40 Trilipix - PO 135 mg DAILY ADALID Administration Sodium Chloride 1,000 mls @ 75 mls/hr 10/12/17 20:30 10/14/17 06:27 Normal Saline - IV 75 mls/hr ASDIR ADALID Administration Ceftriaxone Sodium 2 gm/ 100 mls @ 200 mls/hr 10/12/17 21:30 10/14/17 09:49 Dextrose IVPB 200 mls/hr DAILY ADALID Administration Losartan Potassium 100 mg 10/12/17 21:45 10/14/17 09:40 Cozaar - PO 100 mg DAILY ADALID Administration Metoprolol Succinate 50 mg 10/14/17 10:00 10/14/17 09:48 Toprol Xl - PO 50 mg DAILY ADALID Administration Tamsulosin HCl 0.4 mg 10/12/17 21:45 10/14/17 09:40 Flomax - PO 0.4 mg DAILY@0830 ADALID Administration Laboratory Results - last 24 hr 10/14/17 10/14/17 06:30 06:30 WBC 5.5 D RBC 3.82 L Hgb 12.6 Hct 37.6 MCV 98.5 H MCH 33.0 MCHC 33.6 RDW 14.0 Plt Count 92 L MPV 10.7 Neutrophils % 59.9 D Lymphocytes % 17.9 Monocytes % 17.2 H Eosinophils % 4.5 D Basophils % 0.5 Sodium 140 Potassium 3.9 Chloride 110 H Carbon Dioxide 20 L Anion Gap 10 BUN 11 D Creatinine 1.0 Random Glucose 109 H Calcium 7.8 L Microbiology 10/12/17 15:20 Urine - Urine Clean Catch Urine Culture - Preliminary Lactose Fermenting Neg Bacilli 10/12/17 17:41 Blood - Peripheral Venous Blood Culture - Preliminary NO GROWTH OBTAINED AFTER 24 HOURS, INCUBATION TO CONTINUE FOR 4 DAYS. 10/12/17 17:20 Blood - Peripheral Venous Blood Culture - Preliminary NO GROWTH OBTAINED AFTER 24 HOURS, INCUBATION TO CONTINUE FOR 4 DAYS. ASSESSMENT AND PLAN: 61 yom with HTN, CVA admitted with complicated UTI/cystitis after recent cystoscopy. -Sepsis from complicated UTI/cystitis -Hematuria -Thrombocytopenia -recent cystoscopy -HTN -CVA Plan: improved, resolved symptoms. Urine cultures noted. Discussed with anay Nunez with dc on levaquin with follow up in his office tomorrow to discuss final culture results and further management. D/c on levaquin starting today and follow up with Dr. Arrieta in AM. CBC monitoring outpatient for thrombocytopenia D/c home today. Discussed with patient and all questions answered.
[2017-10-14 15:05] VITALS: BP 123/69; PULSE 76; TEMP 97.1
--- NOTE | 2017-10-14 17:06 | DS ---
Physical Exam: SUBJECTIVE: Patient seen and examined at bedside. Patient denies any acute complaints. Denies fever, chills, nausea, vomiting, chest pain, burning on urination. OBJECTIVE: Vital Signs Period Temp Pulse Resp BP Sys/Rahman Pulse Ox Last 24 Hr 97.1 F-100.3 F 76-95 18-20 92-143/63-83 98-98 PHYSICAL EXAM GENERAL: Awake, alert, and fully oriented, in no acute distress. HEAD: Normal with no signs of trauma. EYES: Pupils equal, round and reactive to light, extraocular movements intact, sclera anicteric, conjunctiva clear. No lid lag. EARS, NOSE, THROAT: Ears normal, nares patent, oropharynx clear without exudates. Moist mucous membranes. NECK: Normal range of motion, supple without lymphadenopathy, JVD, or masses. LUNGS: Breath sounds equal, clear to auscultation bilaterally. No wheezes, and no crackles. No accessory muscle use. HEART: regular rate and rhythm, normal S1 and S2 without murmur, rub or gallop. ABDOMEN: Soft, nontender, not distended, normoactive bowel sounds, no guarding, no rebound, no masses. No hepatomegaly or splenomegaly. MUSCULOSKELETAL: Normal range of motion at all joints. No bony deformities or tenderness. No CVA tenderness. UPPER EXTREMITIES: 2+ pulses, warm, well-perfused. No cyanosis. No clubbing. No peripheral edema. LOWER EXTREMITIES: 2+ pulses, warm, well-perfused. No calf tenderness. No peripheral edema. NEUROLOGICAL: Cranial nerves II-XII intact. Normal speech. Normal gait. PSYCHIATRIC: Cooperative. Good eye contact. Appropriate mood and affect. SKIN: Warm, dry, normal turgor, no rashes or lesions noted, normal capillary refill. LABS Laboratory Results - last 24 hr 10/14/17 10/14/17 06:30 06:30 WBC 5.5 D RBC 3.82 L Hgb 12.6 Hct 37.6 MCV 98.5 H MCH 33.0 MCHC 33.6 RDW 14.0 Plt Count 92 L MPV 10.7 Neutrophils % 59.9 D Lymphocytes % 17.9 Monocytes % 17.2 H Eosinophils % 4.5 D Basophils % 0.5 Sodium 140 Potassium 3.9 Chloride 110 H Carbon Dioxide 20 L Anion Gap 10 BUN 11 D Creatinine 1.0 Random Glucose 109 H Calcium 7.8 L HOSPITAL COURSE: Date of Admission:10/12/17 61 year old male with a past medical history of hypertension and CVA in 2009 presented to the ED due to a 4 day history of fevers and burning on urination. He had a cystoscopy performed for microscopic hematuria and BPH [address] Arrieta, who found a picture of obstructive uropathy. Patient was given a prescription for levofloxacin the day he got the procedure but never went to pick up worker the medication. In the ED, patient was diagnosed with sepsis due to UTI and admitted to [facility] for monitoring. Urine cultures were drawn and a CT abdomen/pelvis was performed to rule out pyelonephritis, which showed a thickened bladder wall consistent with cystitis. Patient was treated with ceftriaxone. After 2 days of treatment, patient had clinically improved and had no more burning on urination and no fevers. Patient was discharged with a prescription for levofloxacin and instructions to follow with Dr. Arrieta the following day. Date of Discharge: 10/14/17 Minutes to complete discharge: 30 Discharge Summary Reason For Visit: URINARY TRACT INFECTION, SEPSIS Condition: Stable - Instructions Diet, Activity, Other Instructions: You were treated in the hospital for sepsis due to urinary tract infection. Medical Recommendations: 1. Please continue your current home medications as prescribed, you were recently prescribed antibiotic levaquin by Dr. Arrieta, you are advised to continue it as directed below (additional 7 days prescription of levaquin is being provided in case you need it). 2. You will be prescribed levofloxacin 500mg once a day for 7 days after discharge. Please discuss with your urologist if you would need additional days of treatment Take your antibiotic first dose TODAY 3. Drink plenty of water, up to 8 glasses a day. 3. Please make an appointment to see Dr. Arrieat, the urologist, tomorrow. This is VERY IMPORTANT. 4. Your urine cultures were sent, preliminary report result shows Lactose fermenting neg bacilli, final report is expected tomorrow, please have your primary doctor or Dr. Hussein Johnston follow up on the results tomorrow. 5. You were also noted with low platelet count, which has been noted in 2014 as well. Need monitoring of the same with your doctor with serial blood test (CBC) . 6. If you experience fever, chills, nausea, vomiting, burning on urination, back /flank or belly pain, please return to the emergency room immediately. Referrals: Liza Ariza MD [Primary Care Provider] - Ángel Arrieta MD [Staff Physician] - Disposition: HOME - Home Medications Comprehensive Discharge Medication List: Ambulatory Orders Fenofibrate Nanocrystallized [Fenofibrate] 145 mg PO DAILY 10/12/17 Losartan Potassium [Cozaar] 100 mg PO DAILY 10/12/17 Metoprolol Tartrate [Lopressor] 50 mg PO DAILY 10/12/17 Tamsulosin HCl [Flomax] 0.4 mg PO DAILY 10/12/17 Levofloxacin [Levaquin -] 500 mg PO DAILY #7 tablet 10/14/17 This patient is new to me today: No Emergency Visit: No Critical Care patient: No - Discharge Referral Referred to [facility] No
== END 2017-10-14 16:24 | disposition home or self-care (01) | DRG 721 ==
LOC: JER 13:32 → JERBED 21:24 → J5S 10-13 00:52
PROVIDERS: ADMIT Internal Medicine; ATTEND Hospitalist
DX: T81.4XXA Infection following a procedure, initial encounter (principal); N17.9 Acute kidney failure, unspecified; A41.9 Sepsis, unspecified organism; N39.0 Urinary tract infection, site not specified; D69.6 Thrombocytopenia, unspecified; Z86.73 Personal history of transient ischemic attack (TIA), and cerebral infarction without residual deficits; E78.5 Hyperlipidemia, unspecified; N40.0 Benign prostatic hyperplasia without lower urinary tract symptoms; R31.0 Gross hematuria; I10 Essential (primary) hypertension; Z87.891 Personal history of nicotine dependence; Y83.8 Other surgical procedures as the cause of abnormal reaction of the patient, or of later complication, without mention of misadventure at the time of the procedure
CPT/HCPCS: 36415; 71010-TC; 74176-TC; 80048; 80053; 81003; 81015; 82436; 82570; 83605; 83735; 83935; 84100; 84133; 84300; 85025; 85027; 85610; 85730; 87040; 87086; 87186; 90670; 90688; 93005; 93010; 99285-25; G0008; G0009; J1644

== ENCOUNTER 2017-10-17 14:16 | Emergency (ER) | payer OTHER ==
[2017-10-17 14:22] VITALS: BP 122/77; PULSE 73; TEMP 97.7; BMI 26.9
--- NOTE | 2017-10-17 15:47 | PDOC ---
History of Present Illness - General Chief Complaint: Pain, Acute Stated Complaint: LEFT LEG PAIN Time Seen by Provider: 10/17/17 14:56 History Source: Patient Exam Limitations: No Limitations - History of Present Illness Initial Comments: 10/17/17 16:26 my chief complaint: Left lower back pain radiating down left buttocks down left leg, dark-colored loose stool History of present illness:Patient is a 61-year-old male with history of right- sided CVA 2009 with residual weakness of the left leg, hypertension, hyperlipidemia here today complaining of lower back pain radiating down left leg to lower leg worse with getting up from seated position. Patient has tingling of his left lower extremity daily is not worse. Patient has a brace to his left lower extremity that he is wearing. Patient reports that his ambulation is not worse than usual. Patient took tramadol however patient is asking for a shot of Toradol that has helped in the past. Patient also reports having loose dark stool was concerned that maybe something was wrong with his intestines her stomach since his discharge from here on 10/13/2017. Patient does not have any abdominal pain no nausea or vomiting. Patient denies any incontinency or saddle anesthesia. 10/17/17 16:27 Occurred: reports: other (4 days left sided lower back pain radiates down left leg to kalin) Severity: reports: moderate Pain Location: reports: back (left sided radiates down left leg to calf ) Method of Injury: Yes: unknown Modifying Factors: improves with: None Loss of Consciousness: no loss of consciousness Past History - Past Medical History Allergies/Adverse Reactions: Allergies Allergy/AdvReac Type Severity Reaction Status Date / Time No Known Allergies Allergy Verified 10/17/17 14:21 Home Medications: Ambulatory Orders Fenofibrate Nanocrystallized [Fenofibrate] 145 mg PO DAILY 10/12/17 Losartan Potassium [Cozaar] 100 mg PO DAILY 10/12/17 Metoprolol Tartrate [Lopressor] 50 mg PO DAILY 10/12/17 Tamsulosin HCl [Flomax] 0.4 mg PO DAILY 10/12/17 Levofloxacin [Levaquin -] 500 mg PO DAILY #7 tablet 10/14/17 Anemia: (low blood count) CVA: Yes (2009) COPD: No DVT: No HTN: Yes - Immunization History Immunization Up to Date: Yes - Suicide/Smoking/Psychosocial Hx Smoking Status: No Smoking History: Never smoked Have you smoked in the past 12 months: No Number of Cigarettes Smoked Daily: 0 Information on smoking cessation initiated: No Hx Alcohol Use: No Drug/Substance Use Hx: No Substance Use Type: None Trauma Specific PMHX - Complaint Specific PMHX Back Injury: Yes Review of Systems - Review of Systems Able to Perform ROS?: Yes HEENTM: No: Symptoms Reported Respiratory: No: Symptoms reported Cardiac (ROS): No: Symptoms Reported ABD/GI: Yes: Tarry Stools (loose once daily since 10/13/17 ), Other : No: Symptoms Reported Musculoskeletal: Yes: Back Pain (left lower back radiates down left leg lower ) , Muscle Weakness ( chronic left leg ( wears a brace) ) Integumentary: No: Symptoms Reported Neurological: Yes: Tingling (left leg not worse than usual) *Physical Exam - Vital Signs Last Vital Signs Temp Pulse Resp BP Pulse Ox 97.7 F 73 18 122/77 99 10/17/17 14:20 10/17/17 14:20 10/17/17 14:20 10/17/17 14:20 10/17/17 14:20 - Physical Exam General Appearance: Yes: Appropriately Dressed Respiratory/Chest: positive: Lungs Clear, Normal Breath Sounds. negative: Chest Tender, Respiratory Distress Cardiovascular: positive: Regular Rhythm, Regular Rate, S1, S2 Gastrointestinal/Abdominal: positive: Normal Bowel Sounds, Soft. negative: Organomegaly, Distended, Guarding, Rebound, Tenderness, Hepatomegaly, Spleenomegaly Rectal Exam: positive: heme negative stool, normal rectal tone Musculoskeletal: positive: Normal Inspection, Decreased Range of Motion (with bending from waist ), Other (left lumbar paraspinal muscle tenderness ). negative: CVA Tenderness, CVA Tenderness (R), CVA Tenderness (L), Vertebral Tenderness Extremity: positive: Normal Capillary Refill. negative: Normal Range of Motion (left leg slightly decreased at hip), Tender, Swelling Integumentary: positive: Normal Color Neurologic: positive: Alert, Motor Strength 5/5 (right, left leg 3/3 ), Respond to painful stimul (left leg ), Responsive. negative: Numbness, Sensory Deficit (left leg ) Medical Decision Making - Medical Decision Making 10/17/17 16:30 Patient is a 61-year-old male with history of right-sided CVA 2010 with residual weakness of the left leg, hypertension, hyperlipidemia here today complaining of lower back pain radiating down left leg to lower leg worse with getting up from seated position for the last few days. Patient has tingling of his left lower extremity daily is not worse. Patient has a brace to his left lower extremity that he is wearing. Patient reports that his ambulation is not worse than usual. Patient took tramadol however patient is asking for a shot of Toradol that has helped in the past. Patient also reports having loose dark stool was concerned that maybe something was wrong with his intestines her stomach since his discharge from here on 10/13/2017. Patient does not have any abdominal pain no nausea or vomiting. Patient denies any incontinency or saddle anesthesia. r/o occult blood in stool left lower back pain with radiculapathy left leg PLAN: hemoccult stool negative ultram 50 mg po give awaiting results of hemmocult will give toradol 30 mg IM follow up with orthopedist *DC/Admit/Observation/Transfer Diagnosis at time of Disposition: Lumbar back pain with radiculopathy affecting left lower extremity - Discharge Dispostion Disposition: HOME Condition at time of disposition: Stable - Referrals Referrals: iLza Ariza MD [Primary Care Provider] - Kings Pratt MD [Staff Physician] - - Patient Instructions Additional Instructions: Follow-up with orthopedist for further evaluation as soon as possible Rest avoid a lot of strenuous activities walking long distances Return to emergency room if symptoms worsen or new symptoms develop any numbness of private area or incontinency of urine or bowel movement Patient voiced understanding of discharge instructions and all questions were answered - Post Discharge Activity
[2017-10-17] MEDS ORDERED: traMADol HCL 50 MG TABLET PO ONE (16:10)
[2017-10-17] MEDS ORDERED: traMADol HCL 50 MG TABLET ONE (16:12)
[2017-10-17] MEDS ORDERED: KETOROLAC TROMETHAMINE 60 MG/2 ML VIAL IM ONE (16:36)
[2017-10-17] MEDS ORDERED: KETOROLAC TROMETHAMINE 30 MG/1 ML VIAL ONE (16:40)
== END 2017-10-17 16:45 | disposition home or self-care (01) ==
LOC: JERFT 14:16
PROC: 3E0233Z Introduction of Anti-inflammatory into Muscle, Percutaneous Approach (ICD-10-PCS; principal; 2017-10-17)
DX: M54.16 Radiculopathy, lumbar region (principal); I10 Essential (primary) hypertension; E78.5 Hyperlipidemia, unspecified; I69.890 Apraxia following other cerebrovascular disease; I69.854 Hemiplegia and hemiparesis following other cerebrovascular disease affecting left non-dominant side
CPT/HCPCS: 36415; 82272; 99281-25

== ENCOUNTER 2018-04-21 14:28 | Emergency (ER) | payer OTHER ==
[2018-04-21 14:37] VITALS: BP 127/70; PULSE 72; TEMP 98.2; BMI 28.1
--- NOTE | 2018-04-21 14:39 | PDOC ---
Rapid Medical Evaluation Time Seen by Provider: 04/21/18 14:33 Medical Evaluation: Allergies Allergy/AdvReac Type Severity Reaction Status Date / Time No Known Allergies Allergy Verified 04/21/18 14:33 04/21/18 14:34 C/O low back pain with radiation down left back into right leg x 1 week, was here last year with same. received "cortisone injection" I have performed a brief in-person evaluation of this patient. The patient presents with a chief complaint of: Low back pain/ radiation down right leg , Pertinent physical exam findings: amb but limps/ CVA 2009- pain reproduced with palp. I have ordered the following: UA, The patient will proceed to the ED for further evaluation 04/21/18 14:37
--- NOTE | 2018-04-21 15:11 | PDOC ---
History of Present Illness - General Chief Complaint: Back Pain Stated Complaint: BACK PAIN Time Seen by Provider: 04/21/18 14:33 - History of Present Illness Initial Comments: 62-year-old male with left-sided hemiparesis from a prior CVA with a history of dyslipidemia and BPH presents for evaluation of one week's worth of lower back pain with posterior lateral left leg radicular symptoms. This pain is exacerbated with activity and relieved with rest but the above-mentioned radiation. He has no other associated symptoms. No fever chills night sweats nausea vomiting or headaches. 04/21/18 15:09 Past History - Past Medical History Allergies/Adverse Reactions: Allergies Allergy/AdvReac Type Severity Reaction Status Date / Time No Known Allergies Allergy Verified 04/21/18 14:33 Home Medications: Ambulatory Orders Fenofibrate Nanocrystallized [Fenofibrate] 145 mg PO DAILY 10/12/17 Losartan Potassium [Cozaar] 100 mg PO DAILY 10/12/17 Metoprolol Tartrate [Lopressor] 50 mg PO DAILY 10/12/17 Tamsulosin HCl [Flomax] 0.4 mg PO DAILY 10/12/17 levoFLOXacin [Levaquin -] 500 mg PO DAILY #7 tablet 10/14/17 Naproxen [Naprosyn -] 500 mg PO BID PRN #14 tablet 10/20/17 Cyclobenzaprine HCl [Flexeril 10 mg] 10 mg PO HS PRN #10 tablet 04/21/18 Methylprednisolone [Medrol Dose Kirit] 4 mg PO ASDIR #21 tablet 04/21/18 Anemia: Yes (low blood count) CVA: Yes (2009) COPD: No DVT: No HTN: Yes - Immunization History Immunization Up to Date: Yes - Suicide/Smoking/Psychosocial Hx Smoking Status: No Smoking History: Never smoked Have you smoked in the past 12 months: No Number of Cigarettes Smoked Daily: 0 Hx Alcohol Use: No Drug/Substance Use Hx: No Substance Use Type: None Review of Systems - Review of Systems Musculoskeletal: Yes: See HPI, Back Pain All Other Systems: Reviewed and Negative *Physical Exam - Vital Signs Last Vital Signs Temp Pulse Resp BP Pulse Ox 98.2 F 72 17 127/70 96 04/21/18 14:33 04/21/18 14:33 04/21/18 14:33 04/21/18 14:33 04/21/18 14:33 - Physical Exam Comments: Lumbar spine range of motion decreased he has 3+ to 4 out of 5 strength in EHL and dorsiflexion of his left ankle quadricep and hip flexors. 5 out of 5 on the right. Positive straight leg raise test on the left. He has no gross sensory deficits. He ambulance with an AFO on the left. Thighs and calves are soft and nontender. He has palpable paralumbar musculature spasm on the right and left. 04/21/18 15:10 Medical Decision Making - Medical Decision Making Is a 62-year-old male with a past medical history significant for stroke hypertension and BPH. I'll treat him with a Medrol Dosepak and Flexeril and have her follow-up with spine surgery. He had does have a pre-existing left- sided hemiparesis from a prior CVA. 04/21/18 15:10 *DC/Admit/Observation/Transfer Diagnosis at time of Disposition: Lumbar radicular pain - Discharge Dispostion Disposition: HOME Condition at time of disposition: Stable Decision to Admit order: No - Referrals Referrals: Donnie Sarkar MD [Staff Physician] - - Patient Instructions Printed Discharge Instructions: Lumbar Radiculopathy, DI for Lumbar Radiculopathy Additional Instructions: I've given you to medications 1 is a muscle relaxer which should be taken before bedtime As it will make you tired. The other one is a steroid pack which should be taken as directed. Directions were on the pack. At given you follow- up with spine surgery for further evaluation and treatment options. Return to the emergency room if your symptoms worsen or go unresolved prior to follow-up - Post Discharge Activity
== END 2018-04-21 15:33 | disposition home or self-care (01) ==
LOC: JERFT 14:28
DX: M54.16 Radiculopathy, lumbar region (principal); D64.9 Anemia, unspecified; E78.5 Hyperlipidemia, unspecified; N40.0 Benign prostatic hyperplasia without lower urinary tract symptoms; I69.854 Hemiplegia and hemiparesis following other cerebrovascular disease affecting left non-dominant side
CPT/HCPCS: 99281-25

== ENCOUNTER 2019-11-07 02:39 | Inpatient (IN) | payer OTHER ==
--- NOTE | 2019-11-07 03:10 | PDOC ---
History of Present Illness - General Chief Complaint: Vomiting/Diarrhea Stated Complaint: ABD PAIN, VOMITING Time Seen by Provider: 11/07/19 03:10 History Source: Patient Exam Limitations: No Limitations - History of Present Illness Initial Comments: 63 year old male with PMH HTN, CVA (2009) presented to ED for nausea/vomiting/ diarrhea since last night. Pt reported he ate chicken cooked by his around 1999, then around 2019 pt developed nausea, vomiting, diarrhea. He reported his has the exact same symptoms, and she is also a patient in the Emergency Department. ROS General: denied fever, chills, generalized weakness. HEENT: denied sore throat, rhinorrhea, ear pain. Cardiovascular: denied chest pain, palpitations, syncope, diaphoresis. Respiratory: denied shortness of breath, cough, sputum production, hemoptysis. Gastrointestinal: admitted to nausea, vomiting, diarrhea. denied abdominal pain , constipation, blood in stool. Genitourinary: denied dysuria, increased urinary frequency, hematuria, urinary incontinence, flank pain. Back: denied back pain. Musculoskeletal: denied joint pain, muscle pain, joint swelling. Neurological: denied headache, dizziness, numbness, tingling, weakness. Integumentary: denied rash, laceration, abrasion. Hematologic/Lymphatic: denied bruising or bleeding. PE Constitutional: Well-nourished, Well-developed, appearing stated age. HEENT: head is normocephalic, atraumatic. EOMI. PERRLA. Neck: supple. Full ROM. Cardiovascular: regular heart rhythm. no murmurs. no pericardial friction rub. Respiratory: clear to auscultation bilaterally. no crackles, rhonchi or wheezing. no stridor. Gastrointestinal: soft, nontender. normal bowel sounds. no rebound, guarding, masses. Extremities: peripheral pulses intact. no lower extremity edema. Neurological: CN 2-12 grossly intact. moves all four extremities. Psych: awake, alert, oriented x3. follows commands. answers questions appropriately. Past History - Past Medical History Allergies/Adverse Reactions: Allergies Allergy/AdvReac Type Severity Reaction Status Date / Time No Known Allergies Allergy Verified 11/07/19 02:49 Home Medications: Ambulatory Orders Losartan Potassium [Cozaar] 100 mg PO DAILY 10/12/17 Metoprolol Tartrate [Lopressor] 50 mg PO DAILY 10/12/17 Tamsulosin HCl [Flomax] 0.4 mg PO DAILY 10/12/17 - Immunization History Immunization Up to Date: Yes - Psycho Social/Smoking Cessation Hx Smoking Status: No Smoking History: Never smoked Have you smoked in the past 12 months: No Number of Cigarettes Smoked Daily: 0 Information on smoking cessation initiated: No Hx Alcohol Use: No Drug/Substance Use Hx: No Substance Use Type: None *Physical Exam - Vital Signs Last Vital Signs Temp Pulse Resp BP Pulse Ox 99.0 F 106 H 18 139/86 97 11/07/19 02:49 11/07/19 02:49 11/07/19 02:49 11/07/19 02:49 11/07/19 02:49 Vital Signs - Vital Signs #1 Time: 06:15 Blood Pressure: 116/74 BP Location: Right Arm Blood Pressure Position: Supine Pulse Rate: 96 Respiratory Rate: 16 Temperature: 98.1 F Temperature Source: Oral O2 Sat by Pulse Oximetry (%): 95 Oxygen Delivery Method: Room Air ED Treatment Course - LABORATORY CBC & Chemistry Diagram: 11/07/19 11:08 11/07/19 11:08 Medical Decision Making - Medical Decision Making 63 year old male with above PMH presented to ED for nausea, vomiting, diarrhea since 2019 last night after ingestion of chicken. Initial Vital Signs Temp Pulse Resp BP Pulse Ox 99.0 F 106 H 18 139/86 97 11/07/19 02:49 11/07/19 02:49 11/07/19 02:49 11/07/19 02:49 11/07/19 02:49 Afebrile. Tachycardic. No tachypnea. Hypertensive. No hypoxia on room air. Labs ordered: CBC, CMP, lipase Imaging ordered: none Medications ordered: pepcid, maalox, zofran, normal saline bolus 1000 cc once EKG performed at 0605: rate 103, regular rhythm, normal axis, AR 224, QTc 416, no acute ST changes. 11/07/19 05:30 Laboratory Last Values WBC 12.3 K/mm3 (4.0-10.0) H 11/07/19 03:20 RBC 4.67 M/mm3 (4.00-5.60) 11/07/19 03:20 Hgb 15.7 GM/dL (11.7-16.9) 11/07/19 03:20 Hct 46.5 % (35.4-49) D 11/07/19 03:20 MCV 99.6 fl (80-96) H 11/07/19 03:20 MCH 33.7 pg (25.7-33.7) 11/07/19 03:20 MCHC 33.8 g/dl (32.0-35.9) 11/07/19 03:20 RDW 13.7 % (11.9-15.9) 11/07/19 03:20 Plt Count 126 K/MM3 (134-434) L D 11/07/19 03:20 MPV 10.5 fl (7.5-11.1) 11/07/19 03:20 Absolute Neuts (auto) 11.2 K/mm3 (1.5-8.0) H 11/07/19 03:20 Neutrophils % 91.5 % (42.8-82.8) H D 11/07/19 03:20 Lymphocytes % 2.4 % (8-40) L D 11/07/19 03:20 Monocytes % 5.4 % (3.8-10.2) 11/07/19 03:20 Eosinophils % 0.5 % (0-4.5) D 11/07/19 03:20 Basophils % 0.2 % (0-2.0) 11/07/19 03:20 Nucleated RBC % 0 % (0-0) 11/07/19 03:20 Sodium 140 mmol/L (136-145) 11/07/19 03:20 Potassium 4.1 mmol/L (3.5-5.1) 11/07/19 03:20 Chloride 106 mmol/L (98-107) 11/07/19 03:20 Carbon Dioxide 25 mmol/L (21-32) 11/07/19 03:20 Anion Gap 9 MMOL/L (8-16) 11/07/19 03:20 BUN 12.2 mg/dL (7-18) 11/07/19 03:20 Creatinine 1.0 mg/dL (0.55-1.3) 11/07/19 03:20 Est GFR (CKD-EPI)AfAm 91.13 11/07/19 03:20 Est GFR (CKD-EPI)NonAf 78.63 11/07/19 03:20 Random Glucose 145 mg/dL (74-106) H 11/07/19 03:20 Calcium 9.1 mg/dL (8.5-10.1) 11/07/19 03:20 Magnesium 2.1 mg/dL (1.8-2.4) 11/07/19 03:20 Total Bilirubin 0.8 mg/dL (0.2-1) 11/07/19 03:20 AST 16 U/L (15-37) 11/07/19 03:20 ALT 32 U/L (13-61) 11/07/19 03:20 Alkaline Phosphatase 70 U/L (45-117) 11/07/19 03:20 Total Protein 7.4 g/dl (6.4-8.2) 11/07/19 03:20 Albumin 4.1 g/dl (3.4-5.0) 11/07/19 03:20 Lipase 60 U/L (73-393) L 11/07/19 03:20 11/07/19 06:16 Vital Signs Temperature 98.1 F 11/07/19 06:16 Pulse Rate 96 H 11/07/19 06:16 Respiratory Rate 16 11/07/19 06:16 Blood Pressure 116/74 11/07/19 06:16 O2 Sat by Pulse Oximetry (%) 95 11/07/19 06:16 11/07/19 06:50 Pt now febrile 100.1F rectally. Pt may have Salmonella, will treat, will give Bactrim because of Fluorquinolone black box warning. Pt informed and agrees with plan for care. Labs ordered: blood cultures, lactate Discharge - Discharge Information Problems reviewed: Yes Clinical Impression/Diagnosis: Nausea, vomiting and diarrhea Fever Qualifiers: Fever type: unspecified Qualified Code(s): R50.9 - Fever, unspecified Condition: Improved Disposition: HOME - Admission No - Follow up/Referral - Patient Discharge Instructions - Post Discharge Activity
[2019-11-07] MEDS ORDERED: SODIUM CHLORIDE 1,000 ML IV STA ×2 (03:11→06:51)
[2019-11-07] MEDS ORDERED: ONDANSETRON 4 MG/2 ML VIAL IVPUSH ONE (03:11)
[2019-11-07] MEDS ORDERED: FAMOTIDINE 20 MG/50 ML IVPB 20 MG/50 ML MG IVPB ONE ×2 (03:11→03:21)
[2019-11-07] MEDS ORDERED: MAG HYDROX/AL HYDROX/SIMETH 30 ML UNIT-DOSE CUP PO ONE (03:11)
[2019-11-07] MEDS ORDERED: ONDANSETRON 4 MG/2 ML VIAL ONE (03:21)
[2019-11-07] MEDS ORDERED: MAG HYDROX/AL HYDROX/SIMETH 30 ML UNIT-DOSE CUP ONE (03:21)
[2019-11-07 03:40] LABS: BASO % 0.2 % (0-2.0); EOS % 0.5 % (0-4.5); HEMATOCRIT 46.5 % (35.4-49); HEMOGLOBIN 15.7 GM/dL (11.7-16.9); LYMPH % 2.4 % (8-40); MCH 33.7 pg (25.7-33.7); MCHC 33.8 g/dl (32.0-35.9); MEAN CELL VOLUME 99.6 fl (80-96); MEAN PLT VOLUME 10.5 fl (7.5-11.1); MONO % 5.4 % (3.8-10.2); NEUT % 91.5 % (42.8-82.8); PLATELET COUNT 126 K/MM3 (134-434); RBC 4.67 M/mm3 (4.00-5.60); RDW 13.7 % (11.9-15.9); WHITE BLOOD COUNT 12.3 K/mm3 (4.0-10.0)
--- NOTE | 2019-11-07 03:46 | PDOC ---
Attending Attestation - Resident Resident Name: Glo Corrales - ED Attending Attestation I have performed the following: I have examined & evaluated the patient, The case was reviewed & discussed with the resident, I agree w/resident's findings & plan - HPI HPI: 11/09/19 03:08 Pt and his cooked chicken at home (likely raw) and both of them began with nausea and vomiting and diarrhea - Physicial Exam PE: 11/09/19 03:14 Pt has diffuse abd pain. Pt is febrile and appears unwell. 11/09/19 03:15 heart and lungs normal No flank pain neuro: no gross focal deficits. - Medical Decision Making 11/07/19 05:18 Labs normal Pt hydrated and although he is feeling better, he remains febrile 101F rectal temp; tachycardic and nonstop diarrhea.. 11/07/19 06:49 He will receive bactrim DS for non-typhoid salmonella gastritis. We will not start fluroquinolone due to black box warnings. 11/09/19 03:15 Pt will be admitted
[2019-11-07 04:12] LABS: ALBUMIN 4.1 g/dl (3.4-5.0); BILIRUBIN,TOTAL 0.8 mg/dL (0.2-1); BLOOD UREA NITROGEN 12.2 mg/dL (7-18); CALCIUM 9.1 mg/dL (8.5-10.1); POTASSIUM 4.1 mmol/L (3.5-5.1); TOT PROT 7.4 g/dl (6.4-8.2)
[2019-11-07] MEDS ORDERED: ACETAMINOPHEN 1000 MG/100 ML VIAL (NON FORMULARY) IVPB ONE (05:47)
[2019-11-07] MEDS ORDERED: SULFAMETHOXAZOLE/TRIMETHOPRIM 800MG/160MG D.S. TABLET PO ONE (05:50)
[2019-11-07] MEDS ORDERED: ACETAMINOPHEN INJECTION 100 ML IVPB ONE (05:51)
[2019-11-07] MEDS ORDERED: SULFAMETHOXAZOLE/TRIMETHOPRIM 800MG/160MG D.S. TABLET ONE (06:08)
--- NOTE | 2019-11-07 07:21 | PDOC ---
*Physical Exam - Vital Signs Last Vital Signs Temp Pulse Resp BP Pulse Ox 100.4 F H 99 H 15 102/63 95 11/07/19 06:59 11/07/19 06:59 11/07/19 06:59 11/07/19 06:59 11/07/19 06:59 - Physical Exam MDM: Received sign out from resident Dr. Corrales. In short, pt is a 63 y/o male presenting with abdominal pain and diarrhea after eating chicken for dinner. also presenting with similar symptoms. Became febrile while in the ED. Concern for possible Salmonella infection in a high risk category given age. Will f/u pending admission. 07 Nov 2019 09:26 AM Telephone discussion with Dr. Murdock. Verbally appraised of the pts HPI, ED course, and current plan of management. Requested stool culture. Will admit the pt to med/surg. ED Treatment Course - LABORATORY CBC & Chemistry Diagram: 11/07/19 03:20 11/07/19 03:20 - ADDITIONAL ORDERS Additional order review: Laboratory Results 11/07/19 11/07/19 11/07/19 03:20 03:20 03:20 Sodium 140 Potassium 4.1 Chloride 106 Carbon Dioxide 25 Anion Gap 9 BUN 12.2 Creatinine 1.0 Est GFR (CKD-EPI)AfAm 91.13 Est GFR (CKD-EPI)NonAf 78.63 Random Glucose 145 H Calcium 9.1 Magnesium 2.1 Total Bilirubin 0.8 AST 16 ALT 32 Alkaline Phosphatase 70 Total Protein 7.4 Albumin 4.1 Lipase 60 L 11/07/19 03:20 RBC 4.67 MCV 99.6 H MCHC 33.8 RDW 13.7 MPV 10.5 Neutrophils % 91.5 H D Lymphocytes % 2.4 L D Monocytes % 5.4 Eosinophils % 0.5 D Basophils % 0.2 - Medications Given in the ED: ED Medications Discontinued Medications Generic Name Dose Route Start Last Admin Trade Name Freq PRN Reason Stop Dose Admin Acetaminophen 1,000 mg 11/07/19 05:47 11/07/19 05:56 Ofirmev Injection - IVPB 11/07/19 05:48 1,000 mg ONCE ONE Administration Al Hydroxide/Mg Hydroxide 30 ml 11/07/19 03:11 11/07/19 03:35 Mylanta Oral Suspension - PO 11/07/19 03:12 30 ml ONCE ONE Administration Famotidine/Sodium Chloride 20 mg in 50 mls @ 100 mls/hr 11/07/19 03:11 03:36 Pepcid 20 Mg Premixed Ivpb - IVPB 11/07/19 03:40 100 mls/hr ONCE ONE Administration Sodium Chloride 1,000 mls @ 1,000 mls/hr 11/07/19 03:11 11/07/19 03:36 Normal Saline - IV 11/07/19 04:10 1,000 mls/hr ASDIR STA Administration Ondansetron HCl 4 mg 11/07/19 03:11 11/07/19 03:36 Zofran Injection IVPUSH 11/07/19 03:12 4 mg ONCE ONE Administration Trimethoprim/Sulfamethoxazole 1 each 11/07/19 05:50 11/07/19 06:13 Bactrim Ds - PO 11/07/19 05:51 1 each ONCE ONE Administration Discharge - Discharge Information Problems reviewed: Yes Clinical Impression/Diagnosis: Nausea, vomiting and diarrhea Fever Qualifiers: Fever type: unspecified Qualified Code(s): R50.9 - Fever, unspecified Condition: Improved Disposition: HOME - Admission Yes - Follow up/Referral Referrals: Babatunde Gama MD [Primary Care Provider] - - Patient Discharge Instructions - Post Discharge Activity
[2019-11-07 10:10] LABS: ANISOCYTOSIS 0; MACROCYTOSIS 0; PLATELET ESTIMATE DECREASED
[2019-11-07] MEDS ORDERED: ACETAMINOPHEN 325 MG TABLET (FP) PO PRN (10:24)
--- NOTE | 2019-11-07 10:32 | HP ---
Admitting History and Physical - Primary Care Physician PCP: Amy Murdock - Admission Chief Complaint: nausea, vomiting and diarroea, History of Present Illness: Initial Comments: 63 year old male with PMH HTN, CVA (2009) R and residual L sided weakness, presented to ED for nausea/vomiting/diarrhea since last night. Pt reported he ate chicken cooked by his around 8 o clock, then around 8; 20 pt developed nausea, vomiting, diarrhea. He reported his has the exact same symptoms, and she is also a patient in the Emergency Department. all night long pt vomited 5-6 times containing the food he ate , and has been having diarroea clear liquid coming out, no chest pain, no sob, and c/o mild abd cramps. no more vomiting now, no prior h/o similar complaints, was given abx bactrim, and ivf, had temp, and was tachycardia History Source: Patient Limitations to Obtaining History: No Limitations - Past Medical History MALTSTER: Yes: CVA (R cva with L sided residual weakness,) Cardiovascular: Yes: HTN, Hyperlipdemia Renal/: Yes: BPH Musculoskeletal: Yes: Hemiplegia (L sided residual weakness,) - Past Surgical History Past Surgical History: Yes: None - Smoking History Smoking history: Never smoked Have you smoked in the past 12 months: No Aproximately how many cigarettes per day: 0 - Alcohol/Substance Use Hx Alcohol Use: Yes (stopped drinking 7 yrs ago, ) - Social History Usual Living Arrangement: Yes: With Spouse ADL: Support Services (aid,) History of Recent Travel: No Home Medications - Allergies Allergies/Adverse Reactions: Allergies Allergy/AdvReac Type Severity Reaction Status Date / Time No Known Allergies Allergy Verified 11/07/19 02:49 - Home Medications Home Medications: Ambulatory Orders Losartan Potassium [Cozaar] 100 mg PO DAILY 10/12/17 Metoprolol Tartrate [Lopressor] 50 mg PO DAILY 10/12/17 Tamsulosin HCl [Flomax] 0.4 mg PO DAILY 10/12/17 Family Medical History Family Hx Diabetes: Mother, Sister, Brother Review of Systems Findings/Remarks: nausea and vomiting diarroea, h/o bph, urinary frequency, L sided weakness uses cane for walking, - Review of Systems Constitutional: reports: Fever, Weakness Neck: reports: No Symptoms Cardiovascular: reports: No Symptoms Respiratory: reports: No Symptoms Gastrointestinal: reports: Abdominal Pain, Bloating, Diarrhea, Nausea, Vomiting. denies: Constipation Genitourinary: reports: Frequency Neurological: reports: Pre-Existing Deficit Hematology/Lymphatic: reports: No Symptoms Psychiatric: reports: No Symptoms Physical Examination Vital Signs: Vital Signs Temperature 98 F 11/07/19 07:17 Pulse Rate 91 H 11/07/19 07:17 Respiratory Rate 16 11/07/19 07:17 Blood Pressure 103/61 11/07/19 07:17 O2 Sat by Pulse Oximetry (%) 95 11/07/19 07:17 Constitutional: Yes: Well Nourished, No Distress Eyes: Yes: Conjunctiva Clear HENT: Yes: WNL, Normocephalic Neck: Yes: WNL, Supple, Trachea Midline Cardiovascular: Yes: Regular Rate and Rhythm Respiratory: Yes: Regular, CTA Bilaterally Gastrointestinal: Yes: Normal Bowel Sounds (diffuse mild tenderness to deep palpation, no rebound,) Edema: No Neurological: Yes: Alert, Oriented, Cran Nerves II-XII Intact, Pre-Existing Deficit (LLE 3/5, and LUE, 5/5 RLE and RUE ,5/5) Labs: CBC, BMP 11/07/19 03:20 11/07/19 03:20 Imaging - Results Chest X-ray: Other X-ray: Other Problem List - Problems (1) Nausea, vomiting and diarrhea Code(s): R11.2 - NAUSEA WITH VOMITING, UNSPECIFIED; R19.7 - DIARRHEA, UNSPECIFIED Assessment/Plan Pt with nausea voniting and diarroea r/o salmonellosis, will get the blood c&s and also stool studies, IVF , start clear liquids and also bactrim fu labs and monitor for now, essential htn is normal for now and bc of diarroea will hold off for now,, will resume home meds if needed later BPH will resume meds later Fen ivf check elebrrolytes and clear liquids as tolerated, Visit type - Emergency Visit Emergency Visit: Yes ED Registration Date: 11/07/19 Care time: The patient presented to the Emergency Department on the above date and was hospitalized for further evaluation of their emergent condition. - New Patient This patient is new to me today: Yes Date on this admission: 11/07/19 - Critical Care Critical Care patient: No
[2019-11-07] MEDS: DEXTROSE 5%-0.45% SALINE 1,000 ML IV SCH (11:00)
[2019-11-07 11:49] LABS: BASO % 0.3 % (0-2.0); EOS % 1.2 % (0-4.5); HEMATOCRIT 41.9 % (35.4-49); HEMOGLOBIN 14.1 GM/dL (11.7-16.9); LYMPH % 9.2 % (8-40); MCH 33.9 pg (25.7-33.7); MCHC 33.7 g/dl (32.0-35.9); MEAN CELL VOLUME 100.6 fl (80-96); MEAN PLT VOLUME 9.7 fl (7.5-11.1); MONO % 10.8 % (3.8-10.2); NEUT % 78.5 % (42.8-82.8); PLATELET COUNT 101 K/MM3 (134-434); RBC 4.17 M/mm3 (4.00-5.60); RDW 13.6 % (11.9-15.9); WHITE BLOOD COUNT 9.2 K/mm3 (4.0-10.0)
[2019-11-07 11:56] LABS: ALBUMIN 3.3 g/dl (3.4-5.0); BILIRUBIN,TOTAL 0.6 mg/dL (0.2-1); BLOOD UREA NITROGEN 11.8 mg/dL (7-18); CALCIUM 8.1 mg/dL (8.5-10.1); TOT PROT 6.1 g/dl (6.4-8.2)
--- NOTE | 2019-11-07 14:05 | EKG ---
Test Reason : Blood Pressure : / mmHG Vent. Rate : 103 BPM Atrial Rate : 104 BPM P-R Int : 224 ms QRS Dur : 084 ms QT Int : 318 ms P-R-T Axes : 167 -17 087 degrees QTc Int : 416 ms NORMAL SINUS RHYTHM, FIRST DEGREE AV BLOCK ABNORMAL ECG WHEN COMPARED WITH ECG OF 12-OCT-2017 22:04, NORMAL SINUS RHYTHM 0CC PREMATURE VENTRICULAR COMPLEXES NO SIGNIFICANT CHANGE FROM PREVIOUS EKG Confirmed by RAHUL MOREL MD ([id number]) on 11/07/2019 2:05:03 PM Referred By: Confirmed By:RAHUL MOREL MD
[2019-11-07] MEDS: SULFAMETHOXAZOLE/TRIMETHOPRIM 800MG/160MG D.S. TABLET PO SCH (22:03)
[2019-11-07] MEDS: HEPARIN NA (PORCINE) 5,000 UNITS/ML 1ML VIAL SQ SCH (22:04)
[2019-11-08 06:13] VITALS: TEMP 98.4; BMI 27.5
[2019-11-08] MEDS: DEXTROSE 5%-0.45% SALINE 1,000 ML IV SCH (09:51)
[2019-11-08] MEDS: SULFAMETHOXAZOLE/TRIMETHOPRIM 800MG/160MG D.S. TABLET PO SCH (09:54)
[2019-11-08] MEDS: HEPARIN NA (PORCINE) 5,000 UNITS/ML 1ML VIAL SQ SCH (09:54)
[2019-11-08 10:51] VITALS: BP 116/68; PULSE 90
--- NOTE | 2019-11-08 11:28 | DS ---
Physical Exam: SUBJECTIVE: Patient seen and examined 63 year old male with PMH HTN, CVA (2010) R and residual L sided weakness, presented to ED for nausea/vomiting/diarrhea since last night. Pt reported he ate chicken cooked by his around 8 o clock, then around 8; 20 pt developed nausea, vomiting, diarrhea. He reported his has the exact same symptoms, and she is also a patient in the Emergency Department. all night long pt vomited 5-6 times containing the food he ate , and has been having diarroea clear liquid coming out, no chest pain, no sob, and c/o mild abd cramps. no more vomiting now, no prior h/o similar complaints, was given abx bactrim, and ivf, had temp, and was tachycardia OBJECTIVE: Vital Signs Period Temp Pulse Resp BP Sys/Rahman Pulse Ox Last 24 Hr 97.9 F-100.0 F 75-96 16-20 98-117/59-74 94-100 PHYSICAL EXAM GENERAL: The patient is awake, alert, and fully oriented, in no acute distress. HEAD: Normal with no signs of trauma. EYES: PERRL, extraocular movements intact, sclera anicteric, conjunctiva clear. ENT: Ears normal, nares patent, oropharynx clear without exudates, moist mucous membranes. NECK: Trachea midline, full range of motion, supple. LUNGS: Breath sounds equal, clear to auscultation bilaterally, no wheezes, no crackles, no accessory muscle use. HEART: Regular rate and rhythm, S1, S2 without murmur, rub or gallop. ABDOMEN: Soft, nontender, nondistended, normoactive bowel sounds, no guarding, no rebound, no hepatosplenomegaly, no masses. EXTREMITIES: 2+ pulses, warm, well-perfused, no edema. NEUROLOGICAL: Cranial nerves II through XII grossly intact. Normal speech, gait not observed. PSYCH: Normal mood, normal affect. SKIN: Warm, dry, normal turgor, no rashes or lesions noted. LABS Laboratory Results - last 24 hr 11/07/19 11/07/19 11/07/19 10:42 11:08 11:08 WBC 9.2 RBC 4.17 Hgb 14.1 Hct 41.9 MCV 100.6 H MCH 33.9 H MCHC 33.7 RDW 13.6 Plt Count 101 L MPV 9.7 Absolute Neuts (auto) 7.2 Neutrophils % 78.5 Lymphocytes % 9.2 D Monocytes % 10.8 H D Eosinophils % 1.2 D Basophils % 0.3 Nucleated RBC % 0 Sodium 142 Potassium 4.0 Chloride 110 H Carbon Dioxide 25 Anion Gap 7 L BUN 11.8 Creatinine 1.0 Est GFR (CKD-EPI)AfAm 91.13 Est GFR (CKD-EPI)NonAf 78.63 Random Glucose 104 Lactic Acid 1.4 Calcium 8.1 L Total Bilirubin 0.6 AST 14 L ALT 24 Alkaline Phosphatase 53 Total Protein 6.1 L Albumin 3.3 L HOSPITAL COURSE: 63 year old male with PMH HTN, CVA (2009) R and residual L sided weakness, presented to ED for nausea/vomiting/diarrhea since last night. Pt reported he ate chicken cooked by his around 8 o clock, then around 8; 20 pt developed nausea, vomiting, diarrhea. He reported his has the exact same symptoms, During the hospital stay his blood cultures are negative. He was not able to produce stool specimen for culture sensitivity and analysis. But his diarrhea has completely resolved and he has tolerated the food well. Advised him to continue with blood pressure medication +7 days of Bactrim twicHe is advised to follow-up with his primary care doctor Date of Admission:11/07/19 Date of Discharge: 11/08/19 Discharge Summary Problems reviewed: Yes Reason For Visit: FEVER,DIARRHEA Current Active Problems Fever (Acute) Nausea, vomiting and diarrhea (Acute) Condition: Good - Instructions Diet, Activity, Other Instructions: Patient had activity as tolerated go back to regular diet and follow-up with his primary care doctor. He can resume his normal activity as best for discharge. Referrals: Babatunde Gama MD [Primary Care Provider] - Disposition: HOME - Home Medications Comprehensive Discharge Medication List: Ambulatory Orders Losartan Potassium [Cozaar] 100 mg PO DAILY 10/12/17 Metoprolol Tartrate [Lopressor] 50 mg PO DAILY 10/12/17 Tamsulosin HCl [Flomax] 0.4 mg PO DAILY 10/12/17 Sulfamethoxazole/Trimethoprim [Bactrim DS -] 1 each PO BID #14 tablet 11/08/19
== END 2019-11-08 16:36 | disposition home or self-care (01) | DRG 392 ==
LOC: JER 02:39 → JERBED 09:27 → J6S 20:59
PROVIDERS: ADMIT Internal Medicine; ATTEND Internal Medicine
DX: R19.7 Diarrhea, unspecified (principal); I69.354 Hemiplegia and hemiparesis following cerebral infarction affecting left non-dominant side; I69.351 Hemiplegia and hemiparesis following cerebral infarction affecting right dominant side; R11.2 Nausea with vomiting, unspecified; I10 Essential (primary) hypertension; R50.9 Fever, unspecified; R00.0 Tachycardia, unspecified; N40.0 Benign prostatic hyperplasia without lower urinary tract symptoms; E78.5 Hyperlipidemia, unspecified; Z86.73 Personal history of transient ischemic attack (TIA), and cerebral infarction without residual deficits
CPT/HCPCS: 36415; 71046-TC-FY; 80053; 83605; 83690; 83735; 85025; 87040; 87045; 87046; 93005; 93010; 99285-25; J0131; J1644; J7030

== ENCOUNTER 2021-01-14 12:28 | Emergency (ER) | payer OTHER ==
[2021-01-14 12:37] VITALS: BP 113/80; PULSE 95; TEMP 98.9; BMI 28.1
== END 2021-01-14 13:46 | disposition home or self-care (01) ==
LOC: JER 12:28
DX: R05 Cough (principal); M79.10 Myalgia, unspecified site; R50.9 Fever, unspecified
CPT/HCPCS: 99284-25; C9803; U0003

== ENCOUNTER 2021-01-20 16:19 | Emergency (ER) | payer OTHER ==
[2021-01-20 16:45] VITALS: TEMP 98.8; BMI 26.6
[2021-01-20] MEDS ORDERED: BAMLANIVIMAB 700 MG in SODIUM CHLORIDE 250 ML IVPB ONE (17:01)
[2021-01-20] MEDS ORDERED: guaiFENesin/CODEINE 10 ML UNIT-DOSE CUPS PO ONE (17:02)
[2021-01-20 18:37] LABS: BASO % 0.3 % (0-2.0); EOS % 0.1 % (0-4.5); HEMATOCRIT 43.7 % (35.4-49); HEMOGLOBIN 14.8 GM/dL (11.7-16.9); LYMPH % 12.6 % (8-40); MCH 33.8 pg (25.7-33.7); MCHC 33.8 g/dl (32.0-35.9); MEAN CELL VOLUME 99.8 fl (80-96); MEAN PLT VOLUME 11.5 fl (7.5-11.1); MONO % 17.3 % (3.8-10.2); NEUT % 69.7 % (42.8-82.8); PLATELET COUNT 100 K/MM3 (134-434); RBC 4.37 M/mm3 (4.00-5.60); RDW 13.4 % (11.9-15.9); WHITE BLOOD COUNT 7.3 K/mm3 (4.0-10.0)
[2021-01-20 18:57] LABS: CHLORIDE 109 mmol/L (98-107); POTASSIUM 4.5 mmol/L (3.5-5.1); SODIUM 141 mmol/L (136-145)
[2021-01-20 19:00] LABS: ALBUMIN 3.6 g/dl (3.4-5.0); ANION GAP 7 MMOL/L (8-16); BLOOD UREA NITROGEN 12.4 mg/dL (7-18); CALCIUM 8.7 mg/dL (8.5-10.1); CO2 25 mmol/L (21-32); GLUCOSE,RANDOM 153 mg/dL (74-106)
[2021-01-20 19:03] LABS: SGOT/AST 14 U/L (15-37); SGPT/ALT 27 U/L (13-61)
[2021-01-20 19:05] LABS: BILIRUBIN,TOTAL 0.2 mg/dL (0.2-1); TOT PROT 7.3 g/dl (6.4-8.2)
[2021-01-20 19:06] LABS: ALK PHOS 69 U/L (45-117)
[2021-01-20 21:15] VITALS: BP 141/92; PULSE 63
== END 2021-01-20 22:56 | disposition home or self-care (01) ==
LOC: JER 16:19
PROC: 3E033GC Introduction of Other Therapeutic Substance into Peripheral Vein, Percutaneous Approach (ICD-10-PCS; principal; 2021-01-20)
DX: U07.1 COVID-19 (principal)
CPT/HCPCS: 36415; 71046-TC-FY; 80053; 82550; 84484; 85025; 93005; 93010; 96365; 99285-25; M0239; Q0239

== ENCOUNTER 2021-01-22 10:55 | Inpatient (IN) | payer OTHER ==
[2021-01-22] MEDS ORDERED: DEXAMETHASONE SOD PHOSPHATE 4 MG/1 ML VIAL IVPUSH ONE (12:05)
[2021-01-22 12:19] LABS: BASO % 0.3 % (0-2.0); HEMOGLOBIN 14.6 GM/dL (11.7-16.9); LYMPH % 11.3 % (8-40); MCH 34.3 pg (25.7-33.7); MCHC 34.7 g/dl (32.0-35.9); MEAN CELL VOLUME 98.6 fl (80-96); MEAN PLT VOLUME 10.6 fl (7.5-11.1); MONO % 20.2 % (3.8-10.2); NEUT % 68.2 % (42.8-82.8); PLATELET COUNT 112 K/MM3 (134-434); RBC 4.26 M/mm3 (4.00-5.60); RDW 13.2 % (11.9-15.9)
[2021-01-22] MEDS ORDERED: DEXAMETHASONE SOD PHOSPHATE 10 MG/1 ML VIAL ONE (12:24)
[2021-01-22 12:25] LABS: INR 1.1 (0.83-1.09); PROTHROMBIN TIME (PATIENT) 13.5 SEC (9.7-13.0)
[2021-01-22] MEDS ORDERED: ACETAMINOPHEN 1000 MG/100 ML VIAL (NON FORMULARY) IVPB ONE (12:25)
[2021-01-22 12:28] LABS: ACTIVATED PTT 30.9 SECONDS (25.2-36.5)
[2021-01-22] MEDS ORDERED: ACETAMINOPHEN INJECTION 100 ML IVPB ONE (12:30)
[2021-01-22 12:34] LABS: CHLORIDE 103 mmol/L (98-107); POTASSIUM 4.1 mmol/L (3.5-5.1); SODIUM 134 mmol/L (136-145)
[2021-01-22 12:36] LABS: ALBUMIN 3.3 g/dl (3.4-5.0); ANION GAP 6 MMOL/L (8-16); BLOOD UREA NITROGEN 14.4 mg/dL (7-18); CALCIUM 8.3 mg/dL (8.5-10.1); CO2 26 mmol/L (21-32); GLUCOSE,RANDOM 111 mg/dL (74-106)
[2021-01-22 12:39] LABS: BILIRUBIN,DIRECT 0.1 mg/dL (0.0-0.2); CREATININE 1.1 mg/dL (0.55-1.3); SGOT/AST 18 U/L (15-37); SGPT/ALT 29 U/L (13-61)
[2021-01-22 12:41] LABS: BILIRUBIN,TOTAL 0.3 mg/dL (0.2-1)
[2021-01-22 12:42] LABS: ALK PHOS 66 U/L (45-117)
[2021-01-22 13:04] LABS: ANISOCYTOSIS 1+; MACROCYTOSIS 1+; PLATELET ESTIMATE DECREASED
[2021-01-22] MEDS ORDERED: CEFTRIAXONE 1 GM in DEXTROSE 5%-WATER - 100 ML IVPB ONE (13:55)
[2021-01-22] MEDS ORDERED: AZITHROMYCIN IVPB 500 MG in DEXTROSE 5%-WATER - 250 ML IVPB ONE (13:56)
[2021-01-22 13:59] LABS: PH,URINE 6.5 (5.0-8.0); URINE APPEARANCE CLEAR; URINE BILIRUBIN NEGATIVE (NEGATIVE); URINE COLOR YELLOW; URINE GLUCOSE (UA) NEGATIVE (NEGATIVE); URINE KETONE NEGATIVE (NEGATIVE); URINE LEUK ESTERASE NEGATIVE (NEGATIVE); URINE NITRITE NEGATIVE (NEGATIVE); URINE PROTEIN NEGATIVE (NEGATIVE); URINE UROBILINOGEN 0.2 mg/dL (0.2-1.0); VENOUS BASE EXCESS -1.2 mmol/L (-2-2); VENOUS PCO2 37.8 mmHg (38-52); VENOUS PH 7.404 (7.310-7.410)
[2021-01-22] MEDS ORDERED: AZITHROMYCIN IVPB 500 MG/250 ML BAG IVPB ONE (14:02)
[2021-01-22] MEDS ORDERED: CEFTRIAXONE 1 GM/50 ML BAG ONE (14:02)
[2021-01-22] MEDS ORDERED: CHOLECALCIFEROL (VIT D3) 1,000 UNIT (25 MCG) TABLET PO ONE (17:09)
[2021-01-22] MEDS ORDERED: CHOLECALCIFEROL (VIT D3) 1,000 UNIT (25 MCG) TABLET ONE (17:24)
[2021-01-22] MEDS ORDERED: guaiFENesin 200 MG/10 ML 10 ML UNIT-DOSE CUPS PO PRN (18:51)
[2021-01-22] MEDS ORDERED: guaiFENesin/D-METHORPHAN HB 10 ML UNIT-DOSE CUPS ONE (18:54)
[2021-01-22] MEDS ORDERED: PANTOPRAZOLE 40 MG TABLET PO ONE (21:17)
[2021-01-22] MEDS: ASCORBIC ACID 500 MG TABLET (FP) PO SCH (22:45)
[2021-01-22] MEDS: guaiFENesin/CODEINE 10 ML UNIT-DOSE CUPS PO PRN (22:45)
[2021-01-22] MEDS: guaiFENesin/CODEINE 10 ML UNIT-DOSE CUPS PO SCH (22:50)
[2021-01-22] MEDS: INSULIN SLIDING SCALE (NOVOLOG) 1 VIAL SQ SCH (22:51)
[2021-01-22 23:20] LABS: HEMOGLOBIN 14.8 GM/dL (11.7-16.9); MCH 33.5 pg (25.7-33.7); MCHC 33.5 g/dl (32.0-35.9); MEAN PLT VOLUME 10.4 fl (7.5-11.1); PLATELET COUNT 113 K/MM3 (134-434); RDW 13.2 % (11.9-15.9); WHITE BLOOD COUNT 3.3 K/mm3 (4.0-10.0)
[2021-01-22 23:36] VITALS: BMI 26.9
[2021-01-23] MEDS: INSULIN SLIDING SCALE (NOVOLOG) 1 VIAL SQ SCH ×4 (06:25→21:08)
[2021-01-23 10:15] LABS: HEMATOCRIT 42.9 % (35.4-49); HEMOGLOBIN 14.8 GM/dL (11.7-16.9); MCH 33.7 pg (25.7-33.7); MCHC 34.5 g/dl (32.0-35.9); MEAN CELL VOLUME 97.8 fl (80-96); MEAN PLT VOLUME 10.9 fl (7.5-11.1); PLATELET COUNT 135 K/MM3 (134-434); RBC 4.38 M/mm3 (4.00-5.60); RDW 13.2 % (11.9-15.9); WHITE BLOOD COUNT 6.4 K/mm3 (4.0-10.0)
[2021-01-23 10:17] LABS: INR 1.08 (0.83-1.09)
[2021-01-23 10:19] LABS: ACTIVATED PTT 29.2 SECONDS (25.2-36.5)
[2021-01-23 10:47] LABS: BILIRUBIN,TOTAL 0.3 mg/dL (0.2-1)
[2021-01-23 10:48] LABS: ALBUMIN 3.2 g/dl (3.4-5.0); BLOOD UREA NITROGEN 15.5 mg/dL (7-18); CREATININE 0.8 mg/dL (0.55-1.3); MAGNESIUM 2.3 mg/dL (1.8-2.4); N-TERMINAL BNP 51.5 pg/ml (5-125)
[2021-01-23 10:49] LABS: PHOSPHOROUS 3.1 mg/dL (2.5-4.9)
[2021-01-23 10:50] LABS: TOT PROT 7.2 g/dl (6.4-8.2)
[2021-01-23 10:55] LABS: CALCIUM 8.5 mg/dL (8.5-10.1)
[2021-01-23] MEDS: DEXAMETHASONE SOD PHOSPHATE 4 MG/1 ML VIAL IVPUSH SCH (11:20)
[2021-01-23] MEDS: ASCORBIC ACID 500 MG TABLET (FP) PO SCH ×2 (11:20→21:08)
[2021-01-23] MEDS: ZINC SULFATE 220 MG CAPSULE (FP) PO SCH (11:20)
[2021-01-23] MEDS: PANTOPRAZOLE 40 MG TABLET PO SCH (11:20)
[2021-01-23] MEDS: CHOLECALCIFEROL (VIT D3) 1,000 UNIT (25 MCG) TABLET PO SCH (11:20)
[2021-01-23] MEDS: LOSARTAN POTASSIUM 50 MG TABLET PO SCH (11:20)
[2021-01-23] MEDS ORDERED: ACETAMINOPHEN 325 MG TABLET (FP) PO PRN (13:08)
[2021-01-23] MEDS ORDERED: REMDESIVIR 200 MG in SODIUM CHLORIDE 210 ML IVPB ONE (15:00)
[2021-01-23] MEDS: HEPARIN NA (PORCINE) 5,000 UNITS/ML 1ML VIAL SQ SCH ×2 (15:51→21:08)
[2021-01-23] MEDS: guaiFENesin/CODEINE 10 ML UNIT-DOSE CUPS PO SCH (21:08)
[2021-01-24] MEDS: HEPARIN NA (PORCINE) 5,000 UNITS/ML 1ML VIAL SQ SCH ×3 (05:43→21:13)
[2021-01-24] MEDS: guaiFENesin/CODEINE 10 ML UNIT-DOSE CUPS PO PRN (05:43)
[2021-01-24] MEDS: INSULIN SLIDING SCALE (NOVOLOG) 1 VIAL SQ SCH ×4 (06:12→21:13)
[2021-01-24] MEDS: DEXAMETHASONE SOD PHOSPHATE 4 MG/1 ML VIAL IVPUSH SCH (09:59)
[2021-01-24] MEDS: ZINC SULFATE 220 MG CAPSULE (FP) PO SCH (10:00)
[2021-01-24] MEDS: LOSARTAN POTASSIUM 50 MG TABLET PO SCH (10:00)
[2021-01-24] MEDS: PANTOPRAZOLE 40 MG TABLET PO SCH (10:00)
[2021-01-24] MEDS: ASCORBIC ACID 500 MG TABLET (FP) PO SCH ×2 (10:01→21:13)
[2021-01-24] MEDS: CHOLECALCIFEROL (VIT D3) 1,000 UNIT (25 MCG) TABLET PO SCH (10:01)
[2021-01-24] MEDS: CODEINE SO4 30 MG TABLET PO SCH ×4 (13:00→17:39)
[2021-01-24] MEDS: guaiFENesin 200 MG/10 ML 10 ML UNIT-DOSE CUPS PO PRN (13:00)
[2021-01-24 13:20] LABS: BASO % 0.1 % (0-2.0); HEMATOCRIT 43.5 % (35.4-49); HEMOGLOBIN 15.1 GM/dL (11.7-16.9); LYMPH % 9.6 % (8-40); MCH 34.5 pg (25.7-33.7); MCHC 34.7 g/dl (32.0-35.9); MEAN CELL VOLUME 99.5 fl (80-96); MEAN PLT VOLUME 10.2 fl (7.5-11.1); MONO % 13.3 % (3.8-10.2); PLATELET COUNT 171 K/MM3 (134-434); RBC 4.38 M/mm3 (4.00-5.60); RDW 13.4 % (11.9-15.9); WHITE BLOOD COUNT 8.5 K/mm3 (4.0-10.0)
[2021-01-24 13:30] LABS: POTASSIUM 4.5 mmol/L (3.5-5.1)
[2021-01-24 13:31] LABS: ALBUMIN 3.1 g/dl (3.4-5.0); BLOOD UREA NITROGEN 18.8 mg/dL (7-18); CALCIUM 8.6 mg/dL (8.5-10.1); MAGNESIUM 2.5 mg/dL (1.8-2.4)
[2021-01-24 13:35] LABS: BILIRUBIN,TOTAL 0.4 mg/dL (0.2-1); CREATININE 0.9 mg/dL (0.55-1.3)
[2021-01-24] MEDS: REMDESIVIR 100 MG in SODIUM CHLORIDE 230 ML IVPB SCH (14:59)
[2021-01-25] MEDS: CODEINE SO4 30 MG TABLET PO SCH ×4 (00:59→17:53)
[2021-01-25] MEDS: HEPARIN NA (PORCINE) 5,000 UNITS/ML 1ML VIAL SQ SCH ×3 (06:23→21:59)
[2021-01-25] MEDS: INSULIN SLIDING SCALE (NOVOLOG) 1 VIAL SQ SCH ×4 (06:27→21:59)
[2021-01-25 09:01] LABS: POTASSIUM 4.3 mmol/L (3.5-5.1)
[2021-01-25 09:03] LABS: ALBUMIN 2.9 g/dl (3.4-5.0); BLOOD UREA NITROGEN 18.8 mg/dL (7-18); CALCIUM 8.2 mg/dL (8.5-10.1); MAGNESIUM 2.5 mg/dL (1.8-2.4)
[2021-01-25 09:06] LABS: CREATININE 0.9 mg/dL (0.55-1.3)
[2021-01-25 09:08] LABS: BILIRUBIN,TOTAL 0.7 mg/dL (0.2-1); TOT PROT 6.6 g/dl (6.4-8.2)
[2021-01-25] MEDS: PANTOPRAZOLE 40 MG TABLET PO SCH (09:15)
[2021-01-25] MEDS: guaiFENesin 200 MG/10 ML 10 ML UNIT-DOSE CUPS PO PRN (09:15)
[2021-01-25] MEDS: ASCORBIC ACID 500 MG TABLET (FP) PO SCH ×2 (09:15→22:00)
[2021-01-25] MEDS: ZINC SULFATE 220 MG CAPSULE (FP) PO SCH (09:16)
[2021-01-25] MEDS: LOSARTAN POTASSIUM 50 MG TABLET PO SCH (09:16)
[2021-01-25] MEDS: CHOLECALCIFEROL (VIT D3) 1,000 UNIT (25 MCG) TABLET PO SCH (09:16)
[2021-01-25] MEDS: DEXAMETHASONE SOD PHOSPHATE 4 MG/1 ML VIAL IVPUSH SCH (09:16)
[2021-01-25 09:28] LABS: BASO % 0.1 % (0-2.0); HEMATOCRIT 41.6 % (35.4-49); HEMOGLOBIN 14.5 GM/dL (11.7-16.9); LYMPH % 26.4 % (8-40); MCH 34.7 pg (25.7-33.7); MCHC 34.8 g/dl (32.0-35.9); MEAN CELL VOLUME 99.8 fl (80-96); MEAN PLT VOLUME 10.1 fl (7.5-11.1); MONO % 22.3 % (3.8-10.2); NEUT % 51.2 % (42.8-82.8); PLATELET COUNT 170 K/MM3 (134-434); RBC 4.17 M/mm3 (4.00-5.60); RDW 13.5 % (11.9-15.9); WHITE BLOOD COUNT 4.5 K/mm3 (4.0-10.0)
[2021-01-25 11:28] LABS: ANISOCYTOSIS 1+; CORRECTED WBC 4.05 K/mm3; MACROCYTOSIS 0; PLATELET ESTIMATE NORMAL
[2021-01-25] MEDS: REMDESIVIR 100 MG in SODIUM CHLORIDE 230 ML IVPB SCH (14:06)
[2021-01-26] MEDS: CODEINE SO4 30 MG TABLET PO SCH ×4 (00:32→18:00)
[2021-01-26] MEDS: HEPARIN NA (PORCINE) 5,000 UNITS/ML 1ML VIAL SQ SCH ×3 (06:19→21:21)
[2021-01-26] MEDS: INSULIN SLIDING SCALE (NOVOLOG) 1 VIAL SQ SCH ×4 (06:24→21:22)
[2021-01-26 09:03] LABS: BASO % 0.1 % (0-2.0); EOS % 0.1 % (0-4.5); HEMATOCRIT 40.9 % (35.4-49); HEMOGLOBIN 14.2 GM/dL (11.7-16.9); LYMPH % 23.8 % (8-40); MCH 34.5 pg (25.7-33.7); MCHC 34.7 g/dl (32.0-35.9); MEAN CELL VOLUME 99.5 fl (80-96); MEAN PLT VOLUME 10.1 fl (7.5-11.1); MONO % 19.5 % (3.8-10.2); NEUT % 56.5 % (42.8-82.8); PLATELET COUNT 181 K/MM3 (134-434); RBC 4.11 M/mm3 (4.00-5.60); RDW 13.1 % (11.9-15.9); WHITE BLOOD COUNT 5.4 K/mm3 (4.0-10.0)
[2021-01-26 09:04] LABS: POTASSIUM 4.2 mmol/L (3.5-5.1)
[2021-01-26] MEDS: ASCORBIC ACID 500 MG TABLET (FP) PO SCH ×2 (09:12→21:21)
[2021-01-26] MEDS: CHOLECALCIFEROL (VIT D3) 1,000 UNIT (25 MCG) TABLET PO SCH (09:12)
[2021-01-26] MEDS: PANTOPRAZOLE 40 MG TABLET PO SCH (09:12)
[2021-01-26] MEDS: ZINC SULFATE 220 MG CAPSULE (FP) PO SCH (09:12)
[2021-01-26] MEDS: guaiFENesin 200 MG/10 ML 10 ML UNIT-DOSE CUPS PO PRN ×2 (09:12→21:21)
[2021-01-26] MEDS: LOSARTAN POTASSIUM 50 MG TABLET PO SCH (09:12)
[2021-01-26] MEDS: DEXAMETHASONE SOD PHOSPHATE 4 MG/1 ML VIAL IVPUSH SCH (09:13)
[2021-01-26 09:15] LABS: ALBUMIN 2.8 g/dl (3.4-5.0); BILIRUBIN,TOTAL 0.6 mg/dL (0.2-1); TOT PROT 6.3 g/dl (6.4-8.2)
[2021-01-26 09:17] LABS: BLOOD UREA NITROGEN 19.9 mg/dL (7-18); MAGNESIUM 2.5 mg/dL (1.8-2.4)
[2021-01-26 09:18] LABS: CALCIUM 8.5 mg/dL (8.5-10.1)
[2021-01-26 09:19] LABS: CREATININE 0.8 mg/dL (0.55-1.3)
[2021-01-26] MEDS: REMDESIVIR 100 MG in SODIUM CHLORIDE 230 ML IVPB SCH (14:40)
[2021-01-26] MEDS ORDERED: INSULIN (NOVOLOG) ASPART 100 UNITS/ML 10ML VIAL ONE (21:01)
[2021-01-27] MEDS: CODEINE SO4 30 MG TABLET PO SCH ×4 (00:39→17:45)
[2021-01-27] MEDS: INSULIN SLIDING SCALE (NOVOLOG) 1 VIAL SQ SCH ×4 (06:42→21:36)
[2021-01-27] MEDS: HEPARIN NA (PORCINE) 5,000 UNITS/ML 1ML VIAL SQ SCH ×3 (06:42→21:29)
[2021-01-27] MEDS: PANTOPRAZOLE 40 MG TABLET PO SCH (09:05)
[2021-01-27] MEDS: CHOLECALCIFEROL (VIT D3) 1,000 UNIT (25 MCG) TABLET PO SCH (09:05)
[2021-01-27] MEDS: LOSARTAN POTASSIUM 50 MG TABLET PO SCH (09:05)
[2021-01-27] MEDS: ASCORBIC ACID 500 MG TABLET (FP) PO SCH ×2 (09:05→21:29)
[2021-01-27] MEDS: DEXAMETHASONE SOD PHOSPHATE 4 MG/1 ML VIAL IVPUSH SCH (09:05)
[2021-01-27] MEDS: ZINC SULFATE 220 MG CAPSULE (FP) PO SCH (09:05)
[2021-01-27 09:13] LABS: BASO % 0.1 % (0-2.0); EOS % 0.1 % (0-4.5); HEMATOCRIT 43.9 % (35.4-49); HEMOGLOBIN 14.9 GM/dL (11.7-16.9); LYMPH % 15.4 % (8-40); MCH 33.3 pg (25.7-33.7); MCHC 33.8 g/dl (32.0-35.9); MEAN CELL VOLUME 98.4 fl (80-96); MEAN PLT VOLUME 9.8 fl (7.5-11.1); MONO % 14.6 % (3.8-10.2); NEUT % 69.8 % (42.8-82.8); PLATELET COUNT 207 K/MM3 (134-434); RBC 4.46 M/mm3 (4.00-5.60); RDW 13.2 % (11.9-15.9); WHITE BLOOD COUNT 9.3 K/mm3 (4.0-10.0)
[2021-01-27 09:39] LABS: ALBUMIN 3.1 g/dl (3.4-5.0); BLOOD UREA NITROGEN 17.3 mg/dL (7-18)
[2021-01-27 09:41] LABS: CREATININE 0.8 mg/dL (0.55-1.3)
[2021-01-27 09:42] LABS: BILIRUBIN,TOTAL 0.8 mg/dL (0.2-1); TOT PROT 6.9 g/dl (6.4-8.2)
[2021-01-27 09:56] LABS: MAGNESIUM 2.4 mg/dL (1.8-2.4)
[2021-01-27 09:59] LABS: CALCIUM 8.4 mg/dL (8.5-10.1)
[2021-01-27] MEDS: guaiFENesin 200 MG/10 ML 10 ML UNIT-DOSE CUPS PO PRN (12:05)
[2021-01-27] MEDS ORDERED: BENZOCAINE/MENTH/CETYLPYRD CL 1 EACH LOZENGE MM PRN (14:22)
[2021-01-27] MEDS: REMDESIVIR 100 MG in SODIUM CHLORIDE 230 ML IVPB SCH (15:00)
[2021-01-27] MEDS ORDERED: INSULIN (NOVOLOG) ASPART 100 UNITS/ML 10ML VIAL ONE (21:06)
[2021-01-28] MEDS: CODEINE SO4 30 MG TABLET PO SCH ×4 (01:16→18:32)
[2021-01-28] MEDS: HEPARIN NA (PORCINE) 5,000 UNITS/ML 1ML VIAL SQ SCH ×3 (06:13→21:18)
[2021-01-28] MEDS: INSULIN SLIDING SCALE (NOVOLOG) 1 VIAL SQ SCH ×4 (06:14→21:19)
[2021-01-28] MEDS: PANTOPRAZOLE 40 MG TABLET PO SCH (10:23)
[2021-01-28] MEDS: CHOLECALCIFEROL (VIT D3) 1,000 UNIT (25 MCG) TABLET PO SCH (10:23)
[2021-01-28] MEDS: LOSARTAN POTASSIUM 50 MG TABLET PO SCH (10:24)
[2021-01-28] MEDS: ZINC SULFATE 220 MG CAPSULE (FP) PO SCH (10:24)
[2021-01-28] MEDS: DEXAMETHASONE SOD PHOSPHATE 4 MG/1 ML VIAL IVPUSH SCH (10:24)
[2021-01-28] MEDS: ASCORBIC ACID 500 MG TABLET (FP) PO SCH ×2 (10:24→21:18)
[2021-01-28] MEDS ORDERED: INSULIN (NOVOLOG) ASPART 100 UNITS/ML 10ML VIAL ONE ×2 (17:03→21:00)
[2021-01-29] MEDS: CODEINE SO4 30 MG TABLET PO SCH ×4 (00:35→17:16)
[2021-01-29] MEDS: HEPARIN NA (PORCINE) 5,000 UNITS/ML 1ML VIAL SQ SCH ×3 (06:33→22:15)
[2021-01-29] MEDS: INSULIN SLIDING SCALE (NOVOLOG) 1 VIAL SQ SCH ×4 (06:38→22:33)
[2021-01-29] MEDS: ZINC SULFATE 220 MG CAPSULE (FP) PO SCH (10:29)
[2021-01-29] MEDS: ASCORBIC ACID 500 MG TABLET (FP) PO SCH ×2 (10:29→22:15)
[2021-01-29] MEDS: PANTOPRAZOLE 40 MG TABLET PO SCH (10:29)
[2021-01-29] MEDS: CHOLECALCIFEROL (VIT D3) 1,000 UNIT (25 MCG) TABLET PO SCH (10:29)
[2021-01-29] MEDS: DEXAMETHASONE SOD PHOSPHATE 4 MG/1 ML VIAL IVPUSH SCH (10:30)
[2021-01-29] MEDS: LOSARTAN POTASSIUM 50 MG TABLET PO SCH (10:30)
[2021-01-29] MEDS ORDERED: INSULIN (NOVOLOG) ASPART 100 UNITS/ML 10ML VIAL ONE ×2 (11:03→17:10)
[2021-01-29] MEDS ORDERED: DEXAMETHASONE 4 MG TABLET (FP) PO SCH (12:21)
[2021-01-29] MEDS: DEXAMETHASONE 4 MG TABLET (FP) PO SCH (13:09)
[2021-01-30] MEDS: CODEINE SO4 30 MG TABLET PO SCH ×4 (00:55→17:24)
[2021-01-30] MEDS: HEPARIN NA (PORCINE) 5,000 UNITS/ML 1ML VIAL SQ SCH (05:55)
[2021-01-30] MEDS: INSULIN SLIDING SCALE (NOVOLOG) 1 VIAL SQ SCH ×3 (06:00→17:24)
[2021-01-30] MEDS ORDERED: TAMSULOSIN HCL 0.4 MG CAP PO SCH (08:30)
[2021-01-30] MEDS ORDERED: DEXAMETHASONE 4 MG TABLET (FP) PO SCH (10:00)
[2021-01-30] MEDS: CHOLECALCIFEROL (VIT D3) 1,000 UNIT (25 MCG) TABLET PO SCH (11:35)
[2021-01-30] MEDS: ZINC SULFATE 220 MG CAPSULE (FP) PO SCH (11:35)
[2021-01-30] MEDS: LOSARTAN POTASSIUM 50 MG TABLET PO SCH (11:39)
[2021-01-30] MEDS: PANTOPRAZOLE 40 MG TABLET PO SCH (11:40)
[2021-01-30] MEDS: ASCORBIC ACID 500 MG TABLET (FP) PO SCH (11:40)
[2021-01-30] MEDS ORDERED: PT OWN MED DRAWER 7, Y5N ONE (11:42)
[2021-01-30] MEDS: DEXAMETHASONE 4 MG TABLET (FP) PO SCH (11:43)
[2021-01-30 16:39] VITALS: TEMP 97.9
[2021-01-30 20:38] VITALS: BP 112/80; PULSE 77
== END 2021-01-30 20:59 | disposition home or self-care (01) | DRG 177 ==
LOC: JER 10:55 → JERBED 14:10 → J6S 20:59
PROVIDERS: ADMIT Internal Medicine; ATTEND Internal Medicine
PROC: XW033E5 Introduction of Remdesivir Anti-infective into Peripheral Vein, Percutaneous Approach, New Technology Group 5 (ICD-10-PCS; principal; 2021-01-22)
DX: U07.1 COVID-19 (principal); J12.82 Pneumonia due to coronavirus disease 2019; J96.01 Acute respiratory failure with hypoxia; I69.354 Hemiplegia and hemiparesis following cerebral infarction affecting left non-dominant side; K92.1 Melena; I10 Essential (primary) hypertension; D64.9 Anemia, unspecified; E78.5 Hyperlipidemia, unspecified; N40.0 Benign prostatic hyperplasia without lower urinary tract symptoms
CPT/HCPCS: 36415; 71045-TC-FY; 80053; 81003; 82248; 82272; 82550; 82728; 82803; 82962; 83605; 83615; 83735; 83880; 84100; 84484; 85025; 85027; 85379; 85610; 85730; 86140; 86769; 86850; 86900; 86901; 87040; 87086; 87186; 87804; 93005; 93010; 94010; 94761; 97116-GP; 97161-GP; 99285-25; C9399; C9803; J0131; J1644; U0003

== ENCOUNTER 2021-03-19 06:48 | Emergency (ER) | payer OTHER ==
[2021-03-19 06:54] VITALS: BP 134/89; PULSE 77; TEMP 98.7; BMI 26.6
[2021-03-19] MEDS ORDERED: KETOROLAC TROMETHAMINE 15 MG/ML VIAL IVPUSH ONE (07:41)
[2021-03-19] MEDS ORDERED: ACETAMINOPHEN 1000 MG/100 ML VIAL (NON FORMULARY) IVPB ONE (07:41)
[2021-03-19] MEDS ORDERED: LIDOCAINE 5% TOPICAL PATCH TP ONE (07:41)
[2021-03-19] MEDS ORDERED: ACETAMINOPHEN INJECTION 100 ML IVPB ONE (08:10)
[2021-03-19] MEDS ORDERED: LIDOCAINE 5% TOPICAL PATCH ONE (08:11)
[2021-03-19] MEDS ORDERED: KETOROLAC TROMETHAMINE 15 MG/ML VIAL ONE (08:11)
[2021-03-19] MEDS ORDERED: LIDOCAINE PATCH REMOVAL MC SCH (22:00)
== END 2021-03-19 12:00 | disposition home or self-care (01) ==
LOC: JER 06:48
PROC: 3E0333Z Introduction of Anti-inflammatory into Peripheral Vein, Percutaneous Approach (ICD-10-PCS; principal; 2021-03-19)
PROC: 3E0333Z Introduction of Anti-inflammatory into Peripheral Vein, Percutaneous Approach (ICD-10-PCS; 2021-03-19)
DX: M54.5 Low back pain (principal)
CPT/HCPCS: 99284-25; J0131

== ENCOUNTER 2021-03-20 12:05 | Emergency (ER) | payer OTHER ==
[2021-03-20 12:12] VITALS: BMI 27.2
[2021-03-20] MEDS ORDERED: KETOROLAC TROMETHAMINE 30 MG/1 ML VIAL IM ONE (14:48)
[2021-03-20] MEDS ORDERED: KETOROLAC TROMETHAMINE 30 MG/1 ML VIAL ONE (15:05)
[2021-03-20] MEDS ORDERED: LIDOCAINE 5% TOPICAL PATCH TP ONE (15:41)
[2021-03-20] MEDS ORDERED: LIDOCAINE 5% TOPICAL PATCH ONE (17:33)
[2021-03-20 17:55] VITALS: BP 121/75; PULSE 67; TEMP 97.2
[2021-03-20] MEDS ORDERED: LIDOCAINE PATCH REMOVAL MC SCH (22:00)
== END 2021-03-20 17:51 | disposition home or self-care (01) ==
LOC: JER 12:05 → JERFT 12:05 → JER 17:51
PROC: 3E0233Z Introduction of Anti-inflammatory into Muscle, Percutaneous Approach (ICD-10-PCS; principal; 2021-03-20)
DX: M54.42 Lumbago with sciatica, left side (principal); G89.29 Other chronic pain; M54.41 Lumbago with sciatica, right side
CPT/HCPCS: 99284-25

== ENCOUNTER 2021-11-27 16:14 | Emergency (ER) | payer OTHER ==
[2021-11-27 16:50] VITALS: BP 139/84; PULSE 90; TEMP 99; BMI 26.7
[2021-11-27] MEDS ORDERED: ACETAMINOPHEN 500 MG TABLET (FP) PO ONE (17:52)
[2021-11-27] MEDS ORDERED: ACETAMINOPHEN 325 MG TABLET (FP) ONE (18:19)
== END 2021-11-27 19:03 | disposition home or self-care (01) ==
LOC: JER 16:14
DX: U07.1 COVID-19 (principal); B34.9 Viral infection, unspecified
CPT/HCPCS: 87804; 99283-25; C9803-CS; U0003; U0005

== ENCOUNTER 2022-11-18 16:19 | Emergency (ER) | payer OTHER ==
[2022-11-18 16:46] VITALS: BP 122/70; PULSE 74; RESP 16; TEMP 97.9; BMI 25.8
== END 2022-11-18 19:25 | disposition home or self-care (01) ==
LOC: JER 16:19
DX: U07.1 COVID-19 (principal)
CPT/HCPCS: 0241U-QW; 99283-25

== ENCOUNTER 2023-01-22 12:15 | Emergency (ER) | payer OTHER ==
[2023-01-22 12:43] VITALS: BP 126/78; PULSE 87; RESP 18; TEMP 98; BMI 26.6
== END 2023-01-22 15:37 | disposition home or self-care (01) ==
LOC: JER 12:15 → JERFT 12:15
DX: J00 Acute nasopharyngitis [common cold] (principal)
CPT/HCPCS: 0241U-QW; 99283-25

== ENCOUNTER 2023-08-29 12:54 | Observation (INO) | payer OTHER ==
[2023-08-29] MEDS ORDERED: METOCLOPRAMIDE HCL INJECTION 10 MG/2 ML VIAL IVPB ONE (14:26)
[2023-08-29] MEDS ORDERED: METOCLOPRAMIDE HCL INJECTION 10 MG/2 ML VIAL ONE (14:30)
[2023-08-29 14:37] LABS: BASO % 0.5 % (0-2.0); EOS % 1.9 % (0-4.5); HEMATOCRIT 42.5 % (35.4-49); HEMOGLOBIN 14.5 GM/dL (11.7-16.9); LYMPH % 31.8 % (8-40); MCH 33.2 pg (25.7-33.7); MEAN CELL VOLUME 97.6 fl (80-96); MEAN PLT VOLUME 10.6 fl (7.5-11.1); MONO % 10.7 % (3.8-10.2); NEUT % 55.1 % (42.8-82.8); PLATELET COUNT 134 10^3/uL (134-434); RBC 4.35 M/mm3 (4.00-5.60); RDW 13.4 % (11.9-15.9); WHITE BLOOD COUNT 7.5 K/mm3 (4.0-10.0)
[2023-08-29 14:45] LABS: INR 1.06 (0.83-1.09); PROTHROMBIN TIME (PATIENT) 12.3 SEC (9.7-13.0)
[2023-08-29 14:48] LABS: ACTIVATED PTT 32.4 SECONDS (25.2-36.5)
[2023-08-29 14:59] LABS: POTASSIUM 3.9 mmol/L (3.5-5.1)
[2023-08-29 15:02] LABS: ALBUMIN 3.9 g/dl (3.4-5.0); BLOOD UREA NITROGEN 12.9 mg/dL (7-18); MAGNESIUM 2.3 mg/dL (1.8-2.4)
[2023-08-29 15:05] LABS: CREATININE 0.9 mg/dL (0.55-1.3)
[2023-08-29 15:06] LABS: BILIRUBIN,TOTAL 0.3 mg/dL (0.2-1); TOT PROT 7.2 g/dl (6.4-8.2)
[2023-08-29] MEDS ORDERED: MECLIZINE HCL 25 MG TABLET (FP) PO ONE (15:58)
[2023-08-29] MEDS ORDERED: MECLIZINE HCL 25 MG TABLET (FP) ONE (16:02)
[2023-08-29 17:40] LABS: EPI CELLS 31 /uL (0-25.1); HYALINE CASTS 9 /uL (0-3.1); URINE APPEARANCE CLEAR; URINE BACTERIA 30 /uL (0-1359); URINE BILIRUBIN NEGATIVE (NEGATIVE); URINE COLOR YELLOW; URINE GLUCOSE (UA) NEGATIVE (NEGATIVE); URINE KETONE TRACE (NEGATIVE); URINE LEUK ESTERASE 1+ (NEGATIVE); URINE NITRITE NEGATIVE (NEGATIVE); URINE PROTEIN NEGATIVE (NEGATIVE); URINE RBC 8 /uL (0-23.9); URINE UROBILINOGEN 0.2 mg/dL (0.2-1.0); URINE WBC 30 /uL (0-25.8)
[2023-08-29] MEDS ORDERED: ONDANSETRON 4 MG/2 ML VIAL IVPUSH PRN (17:51)
[2023-08-29] MEDS ORDERED: MELATONIN 5 MG TABLETS PO PRN (17:52)
[2023-08-29] MEDS ORDERED: ONDANSETRON 4 MG/2 ML VIAL ONE (17:57)
[2023-08-30] MEDS: ATORVASTATIN CA 10 MG TABLET (FP) PO SCH ×2 (00:54→22:26)
[2023-08-30 03:33] VITALS: BMI 26.9
[2023-08-30 08:19] LABS: BASO % 0.6 % (0-2.0); EOS % 2.4 % (0-4.5); HEMATOCRIT 42.4 % (35.4-49); HEMOGLOBIN 14.3 GM/dL (11.7-16.9); LYMPH % 36.8 % (8-40); MCH 32.9 pg (25.7-33.7); MCHC 33.8 g/dl (32.0-35.9); MEAN CELL VOLUME 97.4 fl (80-96); MEAN PLT VOLUME 9.8 fl (7.5-11.1); MONO % 10.6 % (3.8-10.2); NEUT % 49.6 % (42.8-82.8); PLATELET COUNT 125 10^3/uL (134-434); RBC 4.36 M/mm3 (4.00-5.60); RDW 13.6 % (11.9-15.9); WHITE BLOOD COUNT 6.2 K/mm3 (4.0-10.0)
[2023-08-30 08:22] LABS: POTASSIUM 4.1 mmol/L (3.5-5.1)
[2023-08-30 08:25] LABS: BLOOD UREA NITROGEN 11.4 mg/dL (7-18); CALCIUM 8.5 mg/dL (8.5-10.1)
[2023-08-30 08:26] LABS: ALBUMIN 3.4 g/dl (3.4-5.0); MAGNESIUM 2.2 mg/dL (1.8-2.4)
[2023-08-30 08:29] LABS: PHOSPHOROUS 2.9 mg/dL (2.5-4.9)
[2023-08-30 08:30] LABS: BILIRUBIN,TOTAL 0.6 mg/dL (0.2-1); CREATININE 0.9 mg/dL (0.55-1.3); TOT PROT 6.6 g/dl (6.4-8.2)
[2023-08-30] MEDS: TAMSULOSIN HCL 0.4 MG CAP PO SCH (08:45)
[2023-08-30] MEDS ORDERED: FLU VACCINE (FLULAVAL) PF 60 MCG/0.5 ML SYRINGE 2023-2024 IM ONE (09:00)
[2023-08-30] MEDS: LOSARTAN POTASSIUM 50 MG TABLET PO SCH (09:44)
[2023-08-30] MEDS: FINASTERIDE 5 MG TABLET (FP) PO SCH (09:45)
[2023-08-30] MEDS: ENOXAPARIN NA (PORCINE) 40 MG/0.4 ML DISP.SYRIN SQ SCH (09:45)
[2023-08-30] MEDS: ASPIRIN COATED 81 MG TABLET.EC PO SCH (10:21)
[2023-08-31] MEDS ORDERED: SENNOSIDES/DOCUSATE COMBO (SENNA PLUS) TABLET (UD) PO PRN (02:25)
[2023-08-31] MEDS ORDERED: POLYETHYLENE GLYCOL (HEALTHYLAX) 3350 17 GM PACKET PO SCH (02:30)
[2023-08-31 08:10] LABS: HEMATOCRIT 42.7 % (35.4-49); HEMOGLOBIN 15.1 GM/dL (11.7-16.9); MCHC 35.4 g/dl (32.0-35.9); MEAN PLT VOLUME 10.1 fl (7.5-11.1); PLATELET COUNT 126 10^3/uL (134-434); RBC 4.45 M/mm3 (4.00-5.60); RDW 13.8 % (11.9-15.9)
[2023-08-31 08:11] LABS: POTASSIUM 4.9 mmol/L (3.5-5.1)
[2023-08-31 08:13] LABS: ALBUMIN 3.7 g/dl (3.4-5.0); BLOOD UREA NITROGEN 13.2 mg/dL (7-18); CALCIUM 8.8 mg/dL (8.5-10.1)
[2023-08-31 08:17] LABS: CREATININE 1.1 mg/dL (0.55-1.3)
[2023-08-31 08:19] LABS: BILIRUBIN,TOTAL 0.4 mg/dL (0.2-1); TOT PROT 7.1 g/dl (6.4-8.2)
[2023-08-31] MEDS: ASPIRIN COATED 81 MG TABLET.EC PO SCH (09:29)
[2023-08-31] MEDS: FINASTERIDE 5 MG TABLET (FP) PO SCH (09:29)
[2023-08-31] MEDS: ENOXAPARIN NA (PORCINE) 40 MG/0.4 ML DISP.SYRIN SQ SCH (09:29)
[2023-08-31] MEDS: TAMSULOSIN HCL 0.4 MG CAP PO SCH (09:29)
[2023-08-31] MEDS: LOSARTAN POTASSIUM 50 MG TABLET PO SCH (09:29)
[2023-08-31 12:27] VITALS: RESP 18
[2023-08-31 15:29] VITALS: BP 119/67; PULSE 68; TEMP 98.4
== END 2023-08-31 17:33 | disposition home or self-care (01) ==
LOC: JER 12:54 → JERBED 17:06 → J4W 08-30 00:50
PROVIDERS: ADMIT Internal Medicine; ATTEND Internal Medicine
PROC: 3E023GC Introduction of Other Therapeutic Substance into Muscle, Percutaneous Approach (ICD-10-PCS; principal; 2023-08-29)
PROC: 3E033GC Introduction of Other Therapeutic Substance into Peripheral Vein, Percutaneous Approach (ICD-10-PCS; 2023-08-29)
DX: R42 Dizziness and giddiness (principal); I69.893 Ataxia following other cerebrovascular disease; N40.0 Benign prostatic hyperplasia without lower urinary tract symptoms; Z98.49 Cataract extraction status, unspecified eye; Z23 Encounter for immunization
CPT/HCPCS: 0241U-QW; 36415; 70450-TC; 70544-TC; 70551-TC; 71045-TC-FY; 80053; 81003; 82962; 83735; 84100; 84484; 85025; 85027; 85610; 85730; 87086; 87186; 90686; 93005; 93010; 96372; 96374; 96375; 97116-GP; 97162-GP; 99285-25; G0378

== ENCOUNTER 2023-10-04 10:46 | Emergency (ER) | payer OTHER ==
[2023-10-04 10:53] VITALS: RESP 18; TEMP 98.1; BMI 27.6
[2023-10-04] MEDS ORDERED: SODIUM CHLORIDE 0.9% 500 ML INFUS.BAG IV ONE (12:27)
[2023-10-04 13:17] LABS: BASO % 0.7 % (0-2.0); EOS % 2.9 % (0-4.5); HEMATOCRIT 41.2 % (35.4-49); HEMOGLOBIN 14.4 GM/dL (11.7-16.9); LYMPH % 33.5 % (8-40); MCHC 34.9 g/dl (32.0-35.9); MEAN CELL VOLUME 97.5 fl (80-96); MEAN PLT VOLUME 10.2 fl (7.5-11.1); NEUT % 51.9 % (42.8-82.8); PLATELET COUNT 121 10^3/uL (134-434); RBC 4.22 M/mm3 (4.00-5.60); RDW 13.6 % (11.9-15.9); WHITE BLOOD COUNT 6.2 K/mm3 (4.0-10.0)
[2023-10-04 13:38] LABS: POTASSIUM 4.3 mmol/L (3.5-5.1)
[2023-10-04 13:41] LABS: ALBUMIN 3.8 g/dl (3.4-5.0)
[2023-10-04 13:42] LABS: BLOOD UREA NITROGEN 11.9 mg/dL (7-18)
[2023-10-04 13:46] LABS: BILIRUBIN,TOTAL 0.3 mg/dL (0.2-1); TOT PROT 7.1 g/dl (6.4-8.2)
[2023-10-04 15:42] VITALS: BP 139/83; PULSE 62
[2023-10-04 16:08] LABS: EPI CELLS 3 /uL (0-25.1); HYALINE CASTS 0 /uL (0-3.1); PH,URINE 5.5 (5.0-8.0); URINE APPEARANCE CLEAR; URINE BACTERIA 29 /uL (0-1359); URINE BILIRUBIN NEGATIVE (NEGATIVE); URINE COLOR YELLOW; URINE GLUCOSE (UA) NEGATIVE (NEGATIVE); URINE KETONE TRACE (NEGATIVE); URINE LEUK ESTERASE 1+ (NEGATIVE); URINE NITRITE NEGATIVE (NEGATIVE); URINE PROTEIN NEGATIVE (NEGATIVE); URINE RBC 19 /uL (0-23.9); URINE UROBILINOGEN 0.2 mg/dL (0.2-1.0); URINE WBC 26 /uL (0-25.8)
== END 2023-10-04 16:36 | disposition home or self-care (01) ==
LOC: JER 10:46
DX: R42 Dizziness and giddiness (principal); H93.13 Tinnitus, bilateral; N39.0 Urinary tract infection, site not specified; Z86.73 Personal history of transient ischemic attack (TIA), and cerebral infarction without residual deficits
CPT/HCPCS: 36415; 70450-TC; 80053; 81003; 85025; 93005; 93010; 99285-25

== ENCOUNTER 2024-03-30 15:51 | Emergency (ER) | payer OTHER ==
[2024-03-30 16:12] VITALS: BP 120/67; PULSE 86; RESP 18; TEMP 98; BMI 26.4
== END 2024-03-30 17:50 | disposition home or self-care (01) ==
LOC: JERFT 15:51
DX: J06.9 Acute upper respiratory infection, unspecified (principal); U07.1 COVID-19
CPT/HCPCS: 0241U-QW; 71046-TC-FY; 99284-25

== ENCOUNTER 2024-04-15 11:13 | Emergency (ER) | payer OTHER ==
[2024-04-15 11:29] VITALS: BP 137/69; PULSE 83; RESP 18; TEMP 98.4; BMI 27.2
[2024-04-15] MEDS ORDERED: ACETAMINOPHEN 500 MG TABLET (FP) ONE (13:12)
[2024-04-15] MEDS: ACETAMINOPHEN 500 MG TABLET (FP) PO ONE (13:12)
== END 2024-04-15 14:50 | disposition home or self-care (01) ==
LOC: JERFT 11:13
DX: M54.16 Radiculopathy, lumbar region (principal); M54.50 Low back pain, unspecified
CPT/HCPCS: 72100-TC-FY; 99283-25

== ENCOUNTER 2025-08-30 16:18 | Emergency (ER) | payer OTHER ==
[2025-08-30 16:44] VITALS: BP 124/70; PULSE 81; RESP 18; TEMP 97.9; BMI 25.3
[2025-08-30] MEDS ORDERED: ACETAMINOPHEN INJECTION 100 ML ONE (18:06)
[2025-08-30] MEDS: ACETAMINOPHEN 1000 MG/100 ML BAG IVPB ONE (18:56)
== END 2025-08-30 19:33 | disposition home or self-care (01) ==
LOC: JER 16:18
PROC: 3E033NZ Introduction of Analgesics, Hypnotics, Sedatives into Peripheral Vein, Percutaneous Approach (ICD-10-PCS; principal; 2025-08-30)
DX: M25.552 Pain in left hip (principal); W01.0XXA Fall on same level from slipping, tripping and stumbling without subsequent striking against object, initial encounter; Y93.01 Activity, walking, marching and hiking
CPT/HCPCS: 72192-TC; 73070-TC-LT-FY; 73502-TC-LT-FY; 73562-TC-LT-FY; 73562-TC-RT-FY; 96374; 99285-25